=== PATIENT | female | born 1950 | race Caucasian/White ===

== ENCOUNTER 2022-06-19 08:14 | Inpatient (IN) | payer MEDICARE, MEDICAID ==
[2022-06-19] VITALS (35 sets, daily range): BP systolic 86–154; BP diastolic 39–93
[~2022-06-19] VITALS: Ht 167.6 cm; Wt 74.4 kg
[~2022-06-19 08:14] MED LIST: GABA-532 PO; LEVO75TA7 MT; MELO-106 PO; SUMA100T PO
[2022-06-19] MEDS ORDERED: METHYLPREDNISOLONE SOD SUCC 125 MG/2 ML VIAL IV STA (08:33)
[2022-06-19] MEDS ORDERED: ALBUTEROL (0.083%) 2.5MG/3ML NEB HHN STA (08:33)
[2022-06-19] MEDS ORDERED: PROPOFOL 10MG/ML 100ML 100 ML IV STA (08:46)
[2022-06-19] MEDS: IPRATROPIUM BROMIDE (0.02%) 0.5MG/2.5ML NEB HHN STA ×2 (08:52→08:53)
[2022-06-19 08:54] LABS: HEMATOCRIT. 41.5 % (36.0-48.0); MEAN CORPUSCULAR VOLUME 92.3 fL (81.0-99.0); MEAN PLATELET VOLUME 6.6 fl (7.4-10.4); PLATELET 434 x1000/uL (130-400); RED BLOOD CELL COUNT 4.49 mill/uL (4.2-5.4); RED CELL DISTRIBUTION WIDTH 16.2 % (11.6-14.6)
[2022-06-19 08:56] LABS: CHLORIDE 102 mEq/L (98-107)
[2022-06-19 08:57] LABS: PROTHROMBIN TIME 10.5 sec (9.6-11.0)
[2022-06-19 09:12] LABS: ETHANOL BLOOD < 10 mg/dL
[2022-06-19] MEDS ORDERED: VANCOMYCIN 1G PREMIX 200 ML IV STA (09:24)
[2022-06-19] MEDS ORDERED: CEFEPIME 1,000 MG in DEXTROSE 5% WATER 50 ML IV STA (09:24)
[2022-06-19] MEDS ORDERED: SUCCINYLCHOLINE CHLORIDE 200MG/10ML IV ONE (09:39)
[2022-06-19] MEDS ORDERED: ETOMIDATE 2MG/ML 10ML VIAL IV ONE (09:39)
[2022-06-19 09:44] LABS: PLATELET ESTIMATE SLIGHTLY INCREASED
[2022-06-19] MEDS ORDERED: FENTANYL 2500MCG/250ML PMX 250 ML IV ONE (10:00)
[2022-06-19] MEDS ORDERED: SODIUM CHLORIDE 0.9% 1,000 ML IV ONE (10:00)
[2022-06-19] MEDS ORDERED: FENTANYL 2500MCG/250ML PMX 250 ML IV PRN (10:00)
[2022-06-19 10:53] LABS: CLARITY URINE CLOUDY (CLEAR); COLOR URINE YELLOW (YELLOW); KETONES URINE NEGATIVE (NEGATIVE); LEUKOCYTE ESTERASE URINE TRACE (NEGATIVE); NITRITE URINE POSITIVE (NEGATIVE); OCCULT BLOOD URINE TRACE (NEGATIVE); PROTEIN URINE 3+ (NEGATIVE); SPECIFIC GRAVITY URINE 1.016 (1.005-1.030)
[2022-06-19] MEDS ORDERED: NOREPINEPHRINE 8MG/250ML PMX 250 ML IV ONE (11:00)
[2022-06-19 11:11] LABS: *AMPHETAMINES SCREEN URINE NEGATIVE (NEGATIVE); *BARBITURATES SCREEN URINE NEGATIVE (NEGATIVE); *BENZODIAZEPINES SCREEN URINE NEGATIVE (NEGATIVE); *COCAINE SCREEN URINE NEGATIVE (NEGATIVE); CANNABINOID URINE SCREEN NEGATIVE (NEGATIVE); METHADONE URINE SCREEN NEGATIVE (NEGATIVE); OPIATES URINE SCREEN NEGATIVE (NEGATIVE); PHENCYCLIDINE URINE SCREEN NEGATIVE (NEGATIVE)
[2022-06-19] MEDS ORDERED: NOREPINEPHRINE 8 MG in DEXTROSE 5% WATER 250 ML IV NR (11:15)
[2022-06-19] MEDS ORDERED: METHYLPREDNISOLONE SOD SUCC 125 MG/2 ML VIAL IV NR (12:00)
[2022-06-19 12:13] LABS: BG BASE EXCESS -3.4 mmol/L (-2.0-2.0); BG CARBOXYHEMOGLOBIN 0.4 % (0.5-1.5); BG DEOXYHEMOGLOBIN 0.6 % (0.0-5.0); BG FRACTION INSPIRED OXYGEN 100; BG HCO3 ACT 20.4 mmol/L (22.0-26.0); BG METHEMOGLOBIN 0.2 % (0.0-1.5); BG OXYGEN SATURATION 99.4 % (92.0-98.5); BG OXYHEMOGLOBIN 98.8 % (94.0-97.0); BG PCO2 32.8 mmHg (35.0-45.0); BG PH 7.412 (7.350-7.450); BG PO2 442.5 mmHg (75.0-100.0); BG SAMPLE SITE RIGHT RADIAL; BG TOTAL HEMOGLOBIN 12.2 g/dL (12.0-18.0); BG VENT MODE VENT - AC
[2022-06-19] MEDS ORDERED: PROPOFOL 10MG/ML 100ML 100 ML IV SCH (12:45)
[2022-06-19] MEDS ORDERED: IPRATROPIUM/ALBUTEROL 0.5-3(2.5)MG/3ML NEB HHN PRN (15:00)
[2022-06-19] MEDS ORDERED: MIDAZOLAM 100MG/100ML PMX 100 ML IV PRN (15:00)
[2022-06-19] MEDS ORDERED: DEXTROSE 50% WATER 50ML SYRINGE IV PRN (16:15)
[2022-06-19] MEDS: NOREPINEPHRINE 8 MG in DEXT 5% WATER 242 ML IV PRN (17:42)
[2022-06-19] MEDS: ENOXAPARIN 40MG/0.4ML SYR SUBCUT SCH (17:42)
[2022-06-19] MEDS: MIDAZOLAM HCL 100 MG in SODIUM CHLORIDE 0.9% 100 ML IV PRN (17:43)
[2022-06-19] MEDS: FENTANYL 2500MCG/250ML PMX 250 ML IV PRN (17:44)
[2022-06-19] MEDS: BLOOD SUGAR DIAGNOSTIC STRIP TEST SCH ×2 (17:45→21:00)
[2022-06-19] MEDS ORDERED: LITH150C MT (18:02)
[2022-06-19] MEDS ORDERED: LITH300C3 PO (18:05)
[2022-06-19] MEDS: INSULIN LISPRO 100 UNITS/ML SUBCUT SCH ×2 (18:06→21:00)
[2022-06-19] MEDS ORDERED: LEVE750T4 PO (18:07)
[2022-06-19] MEDS ORDERED: HYDR-4135 MT (18:08)
[2022-06-19] MEDS ORDERED: ASCO100T12 MT (18:09)
[2022-06-19] MEDS ORDERED: IRON45TA10 MT (18:09)
[2022-06-19] MEDS ORDERED: PROT20 MT (18:10)
[2022-06-19] MEDS ORDERED: QUET100T PO (18:10)
[2022-06-19] MEDS ORDERED: CEFEPIME 1,000 MG in DEXTROSE 5% WATER 50 ML IV SCH (21:00)
[2022-06-19] MEDS: IPRATROPIUM/ALBUTEROL 0.5-3(2.5)MG/3ML NEB HHN SCH (21:02)
[2022-06-19] MEDS: PIPERACILLIN/TAZOBACTAM 3.375 G in DEXTROSE 5% WATER 50 ML IV SCH (22:10)
[2022-06-19] MEDS: FAMOTIDINE 20MG TABLET PO SCH (22:11)
[2022-06-20] VITALS (93 sets, daily range): BP systolic 68–144; BP diastolic 36–92
[2022-06-20] MEDS: FENTANYL 2500MCG/250ML PMX 250 ML IV PRN ×2 (00:02→11:23)
[2022-06-20] MEDS: IPRATROPIUM/ALBUTEROL 0.5-3(2.5)MG/3ML NEB HHN SCH ×4 (01:28→20:09)
[2022-06-20] MEDS: VANCOMYCIN 1G PREMIX 200 ML IV SCH ×2 (03:38→20:38)
[2022-06-20 05:38] LABS: T4 FREE 0.98 ng/dL (0.76-1.46)
[2022-06-20] MEDS: INSULIN LISPRO 100 UNITS/ML SUBCUT SCH ×3 (06:00→17:39)
[2022-06-20] MEDS: PIPERACILLIN/TAZOBACTAM 3.375 G in DEXTROSE 5% WATER 50 ML IV SCH ×3 (06:13→22:59)
[2022-06-20] MEDS: BLOOD SUGAR DIAGNOSTIC STRIP TEST SCH ×3 (06:14→17:39)
[2022-06-20] MEDS: LEVOTHYROXINE SODIUM 75MCG TABLET PO SCH (07:50)
[2022-06-20 09:39] LABS: CHLORIDE 106 mEq/L (98-107)
[2022-06-20 09:44] LABS: BG BASE EXCESS 1.2 mmol/L (-2.0-2.0); BG CARBOXYHEMOGLOBIN 0.3 % (0.5-1.5); BG DEOXYHEMOGLOBIN 6.1 % (0.0-5.0); BG FRACTION INSPIRED OXYGEN 35; BG HCO3 ACT 25.5 mmol/L (22.0-26.0); BG METHEMOGLOBIN 0.6 % (0.0-1.5); BG OXYGEN SATURATION 93.8 % (92.0-98.5); BG PH 7.433 (7.350-7.450); BG PO2 71.6 mmHg (75.0-100.0); BG SAMPLE SITE RIGHT RADIAL; BG TOTAL HEMOGLOBIN 11.8 g/dL (12.0-18.0); BG VENT MODE VENT - AC
[2022-06-20] MEDS: MIDAZOLAM HCL 100 MG in SODIUM CHLORIDE 0.9% 100 ML IV PRN (11:23)
[2022-06-20] MEDS: NOREPINEPHRINE 8 MG in DEXT 5% WATER 242 ML IV PRN (13:05)
[2022-06-20] MEDS: RISPERIDONE 0.5MG TABLET PO SCH (16:09)
[2022-06-20] MEDS: ENOXAPARIN 40MG/0.4ML SYR SUBCUT SCH (16:09)
[2022-06-20 17:02] LABS: HEPATITIS B SURFACE ANTIGEN NEGATIVE
[2022-06-20 18:21] LABS: BASOPHILS % 0.3 % (0.0-2.0); EOSINOPHILS % 2.5 % (0.0-5.0); HEMATOCRIT. 32.1 % (36.0-48.0); HEMOGLOBIN. 10.7 g/dL (12.0-16.0); LYMPHOCYTES % 12.7 % (20.0-50.0); MEAN CORPUSCULAR HEMOGLOBIN 28.8 pg (28.0-32.0); MEAN CORPUSCULAR VOLUME 86.7 fL (81.0-99.0); MEAN PLATELET VOLUME 6.5 fl (7.4-10.4); MONOCYTES % 7.9 % (2.0-8.0); NEUTROPHILS % 76.6 % (40.0-76.0); PLATELET 236 x1000/uL (130-400); RED CELL DISTRIBUTION WIDTH 15.1 % (11.6-14.6)
[2022-06-20] MEDS: QUETIAPINE FUMARATE 25MG TABLET PO SCH (20:38)
[2022-06-20] MEDS: FAMOTIDINE 20MG TABLET PO SCH (20:38)
[2022-06-21] VITALS (95 sets, daily range): BP systolic 75–121; BP diastolic 47–74
[2022-06-21] MEDS: IPRATROPIUM/ALBUTEROL 0.5-3(2.5)MG/3ML NEB HHN SCH ×4 (01:32→19:56)
[2022-06-21 05:37] LABS: BASOPHILS % 0.8 % (0.0-2.0); EOSINOPHILS % 2.7 % (0.0-5.0); HEMATOCRIT. 35.4 % (36.0-48.0); HEMOGLOBIN. 11.4 g/dL (12.0-16.0); LYMPHOCYTES % 12.8 % (20.0-50.0); MEAN CORPUSCULAR HEMOGLOBIN 28.1 pg (28.0-32.0); MEAN CORPUSCULAR VOLUME 87.2 fL (81.0-99.0); MEAN PLATELET VOLUME 6.7 fl (7.4-10.4); MONOCYTES % 8.6 % (2.0-8.0); NEUTROPHILS % 75.1 % (40.0-76.0); PLATELET 244 x1000/uL (130-400); RED BLOOD CELL COUNT 4.05 mill/uL (4.2-5.4)
[2022-06-21 05:48] LABS: CHLORIDE 103 mEq/L (98-107)
[2022-06-21] MEDS: INSULIN LISPRO 100 UNITS/ML SUBCUT SCH ×5 (06:00→23:58)
[2022-06-21] MEDS: PIPERACILLIN/TAZOBACTAM 3.375 G in DEXTROSE 5% WATER 50 ML IV SCH ×3 (06:51→21:47)
[2022-06-21] MEDS: BLOOD SUGAR DIAGNOSTIC STRIP TEST SCH ×5 (06:51→23:58)
[2022-06-21] MEDS: QUETIAPINE FUMARATE 25MG TABLET PO SCH (09:04)
[2022-06-21] MEDS: LEVOTHYROXINE SODIUM 75MCG TABLET PO SCH (09:04)
[2022-06-21] MEDS: RISPERIDONE 0.5MG TABLET PO SCH ×2 (09:04→17:12)
[2022-06-21 09:25] LABS: BG BASE EXCESS 0.2 mmol/L (-2.0-2.0); BG CARBOXYHEMOGLOBIN 0.6 % (0.5-1.5); BG DEOXYHEMOGLOBIN 2.3 % (0.0-5.0); BG FRACTION INSPIRED OXYGEN 35; BG HCO3 ACT 24.7 mmol/L (22.0-26.0); BG METHEMOGLOBIN 0.3 % (0.0-1.5); BG OXYGEN SATURATION 97.7 % (92.0-98.5); BG OXYHEMOGLOBIN 96.8 % (94.0-97.0); BG PCO2 39.1 mmHg (35.0-45.0); BG PH 7.418 (7.350-7.450); BG SAMPLE SITE RIGHT BRACHIAL; BG TOTAL HEMOGLOBIN 10.7 g/dL (12.0-18.0); BG VENT MODE VENT - AC
[2022-06-21] MEDS: FUROSEMIDE 40MG/4ML VIAL IVP SCH (10:18)
[2022-06-21] MEDS: FENTANYL 2500MCG/250ML PMX 250 ML IV PRN (11:59)
[2022-06-21] MEDS: MIDAZOLAM HCL 100 MG in SODIUM CHLORIDE 0.9% 100 ML IV PRN (13:55)
[2022-06-21] MEDS: VANCOMYCIN 1G PREMIX 200 ML IV SCH (16:02)
[2022-06-21] MEDS: ENOXAPARIN 40MG/0.4ML SYR SUBCUT SCH (16:02)
[2022-06-21] MEDS: FAMOTIDINE 20MG TABLET PO SCH (21:46)
[2022-06-22] VITALS (99 sets, daily range): BP systolic 75–212; BP diastolic 43–124
[2022-06-22] MEDS: IPRATROPIUM/ALBUTEROL 0.5-3(2.5)MG/3ML NEB HHN SCH ×4 (02:05→20:54)
[2022-06-22] MEDS: NOREPINEPHRINE 8 MG in DEXT 5% WATER 242 ML IV PRN (03:36)
[2022-06-22 05:34] LABS: HEMOGLOBIN. 10.2 g/dL (12.0-16.0); MEAN CORPUSCULAR HEMOGLOBIN 29.2 pg (28.0-32.0); MEAN CORPUSCULAR VOLUME 88.2 fL (81.0-99.0); PLATELET 228 x1000/uL (130-400); RED BLOOD CELL COUNT 3.51 mill/uL (4.2-5.4); RED CELL DISTRIBUTION WIDTH 14.8 % (11.6-14.6)
[2022-06-22] MEDS: PIPERACILLIN/TAZOBACTAM 3.375 G in DEXTROSE 5% WATER 50 ML IV SCH ×2 (05:53→15:35)
[2022-06-22] MEDS: BLOOD SUGAR DIAGNOSTIC STRIP TEST SCH (05:53)
[2022-06-22] MEDS: INSULIN LISPRO 100 UNITS/ML SUBCUT SCH (05:54)
[2022-06-22] MEDS: RISPERIDONE 0.5MG TABLET PO SCH ×2 (08:25→17:08)
[2022-06-22] MEDS: LEVOTHYROXINE SODIUM 75MCG TABLET PO SCH (08:25)
[2022-06-22] MEDS: FUROSEMIDE 40MG/4ML VIAL IVP SCH (08:25)
[2022-06-22] MEDS: VANCOMYCIN 1G PREMIX 200 ML IV SCH (08:26)
[2022-06-22] MEDS: FENTANYL 2500MCG/250ML PMX 250 ML IV PRN (08:41)
[2022-06-22 08:44] LABS: BG BASE EXCESS -1.6 mmol/L (-2.0-2.0); BG CARBOXYHEMOGLOBIN 0.3 % (0.5-1.5); BG DEOXYHEMOGLOBIN 2.1 % (0.0-5.0); BG FRACTION INSPIRED OXYGEN 35; BG HCO3 ACT 22.7 mmol/L (22.0-26.0); BG METHEMOGLOBIN 0.1 % (0.0-1.5); BG OXYGEN SATURATION 97.9 % (92.0-98.5); BG OXYHEMOGLOBIN 97.5 % (94.0-97.0); BG PCO2 36.6 mmHg (35.0-45.0); BG PO2 125.1 mmHg (75.0-100.0); BG SAMPLE SITE RIGHT RADIAL; BG TOTAL HEMOGLOBIN 10.3 g/dL (12.0-18.0); BG VENT MODE VENT - AC
[2022-06-22 10:32] LABS: PLATELET ESTIMATE NORMAL
[2022-06-22] MEDS: SODIUM CHLORIDE 0.45% 1,000 ML IV SCH ×2 (10:44→21:15)
[2022-06-22] MEDS: DOCUSATE SODIUM SUGAR FREE 100MG/10ML UDC NG SCH ×2 (11:48→17:08)
[2022-06-22] MEDS: ENOXAPARIN 30MG/0.3ML SYR SUBCUT SCH (17:08)
[2022-06-22] MEDS ORDERED: CEFTRIAXONE 2 G PREMIX 50 ML IV SCH (18:45)
[2022-06-22] MEDS: FAMOTIDINE 20MG TABLET PO SCH ×2 (21:00→21:15)
[2022-06-22] MEDS: CLONIDINE 0.1MG TABLET PO PRN ×2 (21:15→22:08)
[2022-06-22] MEDS: CEFTRIAXONE 2 G in DEXTROSE 5% WATER 50 ML IV SCH (21:18)
[2022-06-23] VITALS (52 sets, daily range): BP systolic 96–204; BP diastolic 61–119
[2022-06-23] MEDS: IPRATROPIUM/ALBUTEROL 0.5-3(2.5)MG/3ML NEB HHN SCH ×4 (02:11→20:01)
[2022-06-23] MEDS: MIDAZOLAM HCL 100 MG in SODIUM CHLORIDE 0.9% 100 ML IV PRN (05:50)
[2022-06-23] MEDS: SODIUM CHLORIDE 0.45% 1,000 ML IV SCH ×2 (08:37→20:27)
[2022-06-23] MEDS: LEVOTHYROXINE SODIUM 75MCG TABLET PO SCH (09:28)
[2022-06-23] MEDS: FUROSEMIDE 40MG/4ML VIAL IVP SCH (09:28)
[2022-06-23] MEDS: RISPERIDONE 0.5MG TABLET PO SCH (09:28)
[2022-06-23] MEDS: DOCUSATE SODIUM SUGAR FREE 100MG/10ML UDC NG SCH ×2 (09:28→16:51)
[2022-06-23 12:51] LABS: BG BASE EXCESS 0.5 mmol/L (-2.0-2.0); BG CARBOXYHEMOGLOBIN 0.5 % (0.5-1.5); BG DEOXYHEMOGLOBIN 3.2 % (0.0-5.0); BG FRACTION INSPIRED OXYGEN 30; BG HCO3 ACT 24.9 mmol/L (22.0-26.0); BG METHEMOGLOBIN 0.3 % (0.0-1.5); BG OXYGEN SATURATION 96.8 % (92.0-98.5); BG PCO2 39.2 mmHg (35.0-45.0); BG PH 7.421 (7.350-7.450); BG PO2 90.1 mmHg (75.0-100.0); BG SAMPLE SITE RIGHT RADIAL; BG TOTAL HEMOGLOBIN 12.3 g/dL (12.0-18.0); BG VENT MODE VENT - CPAP
[2022-06-23] MEDS: HYDRALAZINE HCL 50MG TABLET NG SCH ×2 (14:33→21:41)
[2022-06-23] MEDS: ENOXAPARIN 30MG/0.3ML SYR SUBCUT SCH (16:51)
[2022-06-23] MEDS: CLONIDINE 0.1MG TABLET PO PRN (16:51)
[2022-06-23 17:44] LABS: BG CARBOXYHEMOGLOBIN 0.9 % (0.5-1.5); BG DEOXYHEMOGLOBIN 3.7 % (0.0-5.0); BG FRACTION INSPIRED OXYGEN 35; BG HCO3 ACT 25.2 mmol/L (22.0-26.0); BG METHEMOGLOBIN 0.3 % (0.0-1.5); BG OXYGEN SATURATION 96.3 % (92.0-98.5); BG OXYHEMOGLOBIN 95.1 % (94.0-97.0); BG PCO2 53.7 mmHg (35.0-45.0); BG PO2 94.9 mmHg (75.0-100.0); BG SAMPLE SITE RIGHT RADIAL; BG TOTAL HEMOGLOBIN 13.1 g/dL (12.0-18.0); BG VENT MODE MASK - BIPAP
[2022-06-23] MEDS: CEFTRIAXONE 2 G in DEXTROSE 5% WATER 50 ML IV SCH (20:21)
[2022-06-23] MEDS: FAMOTIDINE 20MG TABLET PO SCH (21:40)
[2022-06-24] VITALS (23 sets, daily range): BP systolic 119–185; BP diastolic 66–94
[2022-06-24] MEDS: IPRATROPIUM/ALBUTEROL 0.5-3(2.5)MG/3ML NEB HHN SCH ×4 (02:42→20:01)
[2022-06-24 06:17] LABS: BASOPHILS % 0.2 % (0.0-2.0); EOSINOPHILS % 0.8 % (0.0-5.0); HEMATOCRIT. 33.4 % (36.0-48.0); LYMPHOCYTES % 8.9 % (20.0-50.0); MEAN CORPUSCULAR HEMOGLOBIN 28.8 pg (28.0-32.0); MEAN CORPUSCULAR VOLUME 87.5 fL (81.0-99.0); MEAN PLATELET VOLUME 6.8 fl (7.4-10.4); MONOCYTES % 8.1 % (2.0-8.0); PLATELET 300 x1000/uL (130-400); RED BLOOD CELL COUNT 3.81 mill/uL (4.2-5.4); RED CELL DISTRIBUTION WIDTH 14.8 % (11.6-14.6)
[2022-06-24 09:02] LABS: BG BASE EXCESS -2.4 mmol/L (-2.0-2.0); BG CARBOXYHEMOGLOBIN 0.3 % (0.5-1.5); BG DEOXYHEMOGLOBIN 9.8 % (0.0-5.0); BG FRACTION INSPIRED OXYGEN 28; BG HCO3 ACT 23.3 mmol/L (22.0-26.0); BG METHEMOGLOBIN 0.3 % (0.0-1.5); BG OXYGEN SATURATION 90.1 % (92.0-98.5); BG OXYHEMOGLOBIN 89.6 % (94.0-97.0); BG PH 7.342 (7.350-7.450); BG PO2 62.2 mmHg (75.0-100.0); BG SAMPLE SITE RIGHT RADIAL; BG TOTAL HEMOGLOBIN 11.7 g/dL (12.0-18.0); BG TOTAL RESPIRATORY RATE 22 b/min; BG VENT MODE MASK - BIPAP
[2022-06-24] MEDS: SODIUM CHLORIDE 0.45% 1,000 ML IV SCH ×2 (09:31→18:58)
[2022-06-24] MEDS: DOCUSATE SODIUM SUGAR FREE 100MG/10ML UDC NG SCH ×2 (10:09→18:58)
[2022-06-24] MEDS: LEVOTHYROXINE SODIUM 75MCG TABLET PO SCH (10:10)
[2022-06-24] MEDS: HYDRALAZINE HCL 50MG TABLET NG SCH ×2 (10:10→20:51)
[2022-06-24] MEDS: ACETYLCYSTEINE 200MG/ML 20% VIAL 4ML INH SCH ×2 (14:07→20:01)
[2022-06-24] MEDS ORDERED: VANCOMYCIN 1G PREMIX 200 ML IV NR (18:00)
[2022-06-24] MEDS: ENOXAPARIN 30MG/0.3ML SYR SUBCUT SCH (18:58)
[2022-06-24] MEDS ORDERED: IPRATROPIUM/ALBUTEROL 0.5-3(2.5)MG/3ML NEB HHN NR (20:00)
[2022-06-24] MEDS: FAMOTIDINE 20MG TABLET PO SCH (20:51)
[2022-06-24] MEDS: CEFTRIAXONE 2 G in DEXTROSE 5% WATER 50 ML IV SCH (20:51)
[2022-06-25] VITALS (18 sets, daily range): BP systolic 102–167; BP diastolic 55–115
[2022-06-25] MEDS: IPRATROPIUM/ALBUTEROL 0.5-3(2.5)MG/3ML NEB HHN SCH ×3 (01:45→14:05)
[2022-06-25 05:52] LABS: BASOPHILS % 0.3 % (0.0-2.0); EOSINOPHILS % 2.1 % (0.0-5.0); HEMOGLOBIN. 8.8 g/dL (12.0-16.0); LYMPHOCYTES % 9.7 % (20.0-50.0); MEAN CORPUSCULAR HEMOGLOBIN 28.8 pg (28.0-32.0); MEAN CORPUSCULAR VOLUME 88.5 fL (81.0-99.0); MEAN PLATELET VOLUME 6.9 fl (7.4-10.4); MONOCYTES % 11.5 % (2.0-8.0); NEUTROPHILS % 76.4 % (40.0-76.0); PLATELET 212 x1000/uL (130-400); RED BLOOD CELL COUNT 3.05 mill/uL (4.2-5.4); RED CELL DISTRIBUTION WIDTH 14.6 % (11.6-14.6)
[2022-06-25] MEDS: SODIUM CHLORIDE 0.45% 1,000 ML IV SCH ×2 (06:07→15:17)
[2022-06-25] MEDS ORDERED: POTASSIUM CHLORIDE 20MEQ TABLET SR PO NR (06:45)
[2022-06-25] MEDS ORDERED: KCL 20MEQ/100ML PREMIX 100 ML IV NR (07:30)
[2022-06-25] MEDS: ACETYLCYSTEINE 200MG/ML 20% VIAL 4ML INH SCH ×2 (08:09→20:42)
[2022-06-25] MEDS: LEVOTHYROXINE SODIUM 75MCG TABLET PO SCH (08:16)
[2022-06-25] MEDS: DOCUSATE SODIUM SUGAR FREE 100MG/10ML UDC NG SCH ×2 (10:14→17:00)
[2022-06-25] MEDS ORDERED: IPRATROPIUM/ALBUTEROL 0.5-3(2.5)MG/3ML NEB HHN PRN (11:30)
[2022-06-25] MEDS: HYDRALAZINE HCL 25MG TABLET NG SCH ×2 (15:12→22:00)
[2022-06-25] MEDS ORDERED: HALOPERIDOL LACTATE 5MG/ML VIAL IM PRN (16:45)
[2022-06-25 16:54] LABS: BG BASE EXCESS 0.2 mmol/L (-2.0-2.0); BG CARBOXYHEMOGLOBIN 0.5 % (0.5-1.5); BG DEOXYHEMOGLOBIN 11.8 % (0.0-5.0); BG FRACTION INSPIRED OXYGEN 36; BG HCO3 ACT 24.5 mmol/L (22.0-26.0); BG OXYGEN SATURATION 88.1 % (92.0-98.5); BG OXYHEMOGLOBIN 87.7 % (94.0-97.0); BG PCO2 38.6 mmHg (35.0-45.0); BG PH 7.421 (7.350-7.450); BG PO2 56.7 mmHg (75.0-100.0); BG SAMPLE SITE RIGHT BRACHIAL; BG TOTAL HEMOGLOBIN 11.3 g/dL (12.0-18.0); BG VENT MODE NASAL CANNULA
[2022-06-25] MEDS ORDERED: HALOPERIDOL LACTATE 5MG/ML VIAL IM ONE (17:00)
[2022-06-25] MEDS ORDERED: IPRATROPIUM BROMIDE (0.02%) 0.5MG/2.5ML NEB HHN PRN (17:15)
[2022-06-25] MEDS ORDERED: ALBUTEROL (0.083%) 2.5MG/3ML NEB HHN PRN (17:15)
[2022-06-25] MEDS: ENOXAPARIN 40MG/0.4ML SYR SUBCUT SCH (17:46)
[2022-06-25] MEDS ORDERED: QUETIAPINE FUMARATE 50MG TABLET PO SCH (18:00)
[2022-06-25] MEDS: ALBUTEROL (0.083%) 2.5MG/3ML NEB HHN SCH ×2 (20:41→21:29)
[2022-06-25] MEDS: IPRATROPIUM BROMIDE (0.02%) 0.5MG/2.5ML NEB HHN SCH ×2 (20:41→21:29)
[2022-06-25] MEDS: FAMOTIDINE 20MG TABLET PO SCH (21:00)
[2022-06-25] MEDS: OLANZAPINE 10 MG/VIAL IM NR (22:33)
[2022-06-25] MEDS: CEFTRIAXONE 2 G in DEXTROSE 5% WATER 50 ML IV SCH (22:34)
[2022-06-25] MEDS ORDERED: OLANZAPINE 10 MG/VIAL IM PRN (23:00)
[2022-06-26] VITALS (11 sets, daily range): BP systolic 102–170; BP diastolic 42–106
[2022-06-26] MEDS: OLANZAPINE 10 MG/VIAL IM NR (01:11)
[2022-06-26] MEDS: ALBUTEROL (0.083%) 2.5MG/3ML NEB HHN SCH ×3 (01:16→20:00)
[2022-06-26] MEDS: IPRATROPIUM BROMIDE (0.02%) 0.5MG/2.5ML NEB HHN SCH ×3 (01:16→20:00)
[2022-06-26] MEDS: SODIUM CHLORIDE 0.45% 1,000 ML IV SCH ×2 (02:56→13:31)
[2022-06-26 05:59] LABS: BASOPHILS % 0.4 % (0.0-2.0); EOSINOPHILS % 1.8 % (0.0-5.0); HEMATOCRIT. 26.9 % (36.0-48.0); HEMOGLOBIN. 8.8 g/dL (12.0-16.0); LYMPHOCYTES % 15.2 % (20.0-50.0); MEAN CORPUSCULAR HEMOGLOBIN 28.9 pg (28.0-32.0); MEAN CORPUSCULAR VOLUME 88.6 fL (81.0-99.0); MEAN PLATELET VOLUME 6.9 fl (7.4-10.4); MONOCYTES % 8.9 % (2.0-8.0); NEUTROPHILS % 73.7 % (40.0-76.0); PLATELET 248 x1000/uL (130-400); RED BLOOD CELL COUNT 3.04 mill/uL (4.2-5.4); RED CELL DISTRIBUTION WIDTH 14.6 % (11.6-14.6)
[2022-06-26] MEDS: HYDRALAZINE HCL 25MG TABLET NG SCH ×3 (06:00→23:22)
[2022-06-26] MEDS: ACETYLCYSTEINE 200MG/ML 20% VIAL 4ML INH SCH ×2 (07:58→20:00)
[2022-06-26] MEDS: LEVOTHYROXINE SODIUM 75MCG TABLET PO SCH (08:46)
[2022-06-26] MEDS: DOCUSATE SODIUM SUGAR FREE 100MG/10ML UDC NG SCH ×2 (08:46→16:08)
[2022-06-26] MEDS: QUETIAPINE FUMARATE 50MG TABLET PO SCH ×2 (09:15→23:22)
[2022-06-26] MEDS ORDERED: POTASSIUM CHLORIDE 20MEQ TABLET SR PO SCH (13:00)
[2022-06-26] MEDS: FUROSEMIDE 40MG TABLET PO SCH (13:31)
[2022-06-26] MEDS: LORAZEPAM 2MG/ML CPJ IV PRN (15:31)
[2022-06-26] MEDS: ENOXAPARIN 40MG/0.4ML SYR SUBCUT SCH (16:08)
[2022-06-26 19:13] LABS: BG BASE EXCESS 1.3 mmol/L (-2.0-2.0); BG CARBOXYHEMOGLOBIN 0.6 % (0.5-1.5); BG DEOXYHEMOGLOBIN 6.4 % (0.0-5.0); BG FRACTION INSPIRED OXYGEN 40; BG HCO3 ACT 28.3 mmol/L (22.0-26.0); BG METHEMOGLOBIN 0.3 % (0.0-1.5); BG OXYGEN SATURATION 93.5 % (92.0-98.5); BG OXYHEMOGLOBIN 92.7 % (94.0-97.0); BG PCO2 54.9 mmHg (35.0-45.0); BG SAMPLE SITE RIGHT RADIAL; BG TOTAL HEMOGLOBIN 13.2 g/dL (12.0-18.0); BG VENT MODE NASAL CANNULA
[2022-06-26] MEDS: FAMOTIDINE 20MG TABLET PO SCH (23:22)
[2022-06-26] MEDS: HALOPERIDOL LACTATE 5MG/ML VIAL IM PRN (23:23)
[2022-06-27] VITALS: BP 148/78
[2022-06-27] MEDS: ALBUTEROL (0.083%) 2.5MG/3ML NEB HHN SCH ×4 (02:55→21:18)
[2022-06-27] MEDS: IPRATROPIUM BROMIDE (0.02%) 0.5MG/2.5ML NEB HHN SCH ×4 (02:55→21:18)
[2022-06-27 04:00] VITALS: BP 113/69
[2022-06-27] MEDS: HYDRALAZINE HCL 25MG TABLET NG SCH ×3 (06:26→20:32)
[2022-06-27 07:07] LABS: BASOPHILS % 0.6 % (0.0-2.0); EOSINOPHILS % 1.3 % (0.0-5.0); HEMATOCRIT. 31.1 % (36.0-48.0); HEMOGLOBIN. 10.1 g/dL (12.0-16.0); LYMPHOCYTES % 14.3 % (20.0-50.0); MEAN CORPUSCULAR HEMOGLOBIN 28.5 pg (28.0-32.0); MEAN CORPUSCULAR VOLUME 88.1 fL (81.0-99.0); MEAN PLATELET VOLUME 6.9 fl (7.4-10.4); MONOCYTES % 10.3 % (2.0-8.0); NEUTROPHILS % 73.5 % (40.0-76.0); PLATELET 314 x1000/uL (130-400); RED BLOOD CELL COUNT 3.53 mill/uL (4.2-5.4); RED CELL DISTRIBUTION WIDTH 14.8 % (11.6-14.6)
[2022-06-27 08:00] VITALS: BP 131/74
[2022-06-27] MEDS: HALOPERIDOL LACTATE 5MG/ML VIAL IM PRN (09:31)
[2022-06-27] MEDS: FUROSEMIDE 40MG TABLET PO SCH (11:07)
[2022-06-27] MEDS: LEVOTHYROXINE SODIUM 75MCG TABLET PO SCH (11:07)
[2022-06-27] MEDS: QUETIAPINE FUMARATE 50MG TABLET PO SCH ×2 (11:07→20:32)
[2022-06-27] MEDS: DOCUSATE SODIUM SUGAR FREE 100MG/10ML UDC NG SCH ×2 (11:08→18:10)
[2022-06-27 12:00] VITALS: BP 158/95
[2022-06-27] MEDS: LITHIUM CARBONATE 150 MG CAPSULE PO SCH (14:37)
[2022-06-27 16:00] VITALS: BP 146/90
[2022-06-27] MEDS: GABAPENTIN 300MG CAPSULE PO SCH (17:00)
[2022-06-27] MEDS ORDERED: LITHIUM CARBONATE 150 MG CAPSULE PO SCH (17:00)
[2022-06-27] MEDS: ENOXAPARIN 40MG/0.4ML SYR SUBCUT SCH (18:10)
[2022-06-27 20:00] VITALS: BP 164/86
[2022-06-27] MEDS: LEVETIRACETAM 500MG/5ML CUP PO SCH (20:32)
[2022-06-27] MEDS: FAMOTIDINE 20MG TABLET PO SCH (20:32)
[2022-06-27] MEDS: ACETYLCYSTEINE 200MG/ML 20% VIAL 4ML INH SCH (21:18)
[2022-06-28] VITALS (7 sets, daily range): BP systolic 126–157; BP diastolic 65–90
[2022-06-28] MEDS: ALBUTEROL (0.083%) 2.5MG/3ML NEB HHN SCH ×4 (01:39→21:35)
[2022-06-28] MEDS: IPRATROPIUM BROMIDE (0.02%) 0.5MG/2.5ML NEB HHN SCH ×4 (01:39→21:35)
[2022-06-28] MEDS: LEVOTHYROXINE SODIUM 75MCG TABLET PO SCH (06:08)
[2022-06-28] MEDS: HYDRALAZINE HCL 25MG TABLET NG SCH ×3 (06:09→22:00)
[2022-06-28] MEDS: ACETYLCYSTEINE 200MG/ML 20% VIAL 4ML INH SCH ×2 (07:52→21:35)
[2022-06-28] MEDS: LITHIUM CARBONATE 150 MG CAPSULE PO SCH ×2 (09:04→17:12)
[2022-06-28] MEDS: FUROSEMIDE 40MG TABLET PO SCH (09:04)
[2022-06-28] MEDS: LEVETIRACETAM 500MG/5ML CUP PO SCH ×2 (09:04→21:09)
[2022-06-28] MEDS: QUETIAPINE FUMARATE 50MG TABLET PO SCH (09:04)
[2022-06-28] MEDS: ASCORBIC ACID 250 MG TABLET PO SCH (09:04)
[2022-06-28] MEDS: GABAPENTIN 300MG CAPSULE PO SCH ×3 (09:05→17:15)
[2022-06-28] MEDS: DOCUSATE SODIUM SUGAR FREE 100MG/10ML UDC NG SCH ×2 (09:07→17:13)
[2022-06-28] MEDS: ENOXAPARIN 40MG/0.4ML SYR SUBCUT SCH (17:13)
[2022-06-28] MEDS: FAMOTIDINE 20MG TABLET PO SCH (21:09)
[2022-06-28] MEDS: QUETIAPINE FUMARATE 25MG TABLET PO SCH (21:12)
[2022-06-29] VITALS (8 sets, daily range): BP systolic 102–148; BP diastolic 43–74
[2022-06-29] MEDS: IPRATROPIUM BROMIDE (0.02%) 0.5MG/2.5ML NEB HHN SCH ×4 (02:36→20:12)
[2022-06-29] MEDS: ALBUTEROL (0.083%) 2.5MG/3ML NEB HHN SCH ×4 (02:36→20:12)
[2022-06-29] MEDS: HYDRALAZINE HCL 25MG TABLET NG SCH (05:30)
[2022-06-29] MEDS: LEVOTHYROXINE SODIUM 75MCG TABLET PO SCH (05:33)
[2022-06-29] MEDS: LITHIUM CARBONATE 150 MG CAPSULE PO SCH ×2 (08:43→17:10)
[2022-06-29] MEDS: QUETIAPINE FUMARATE 25MG TABLET PO SCH ×2 (08:43→20:06)
[2022-06-29] MEDS: ASCORBIC ACID 250 MG TABLET PO SCH (08:43)
[2022-06-29] MEDS: LEVETIRACETAM 500MG/5ML CUP PO SCH ×2 (08:43→20:05)
[2022-06-29] MEDS: DOCUSATE SODIUM SUGAR FREE 100MG/10ML UDC NG SCH ×2 (08:43→17:10)
[2022-06-29] MEDS: FUROSEMIDE 40MG TABLET PO SCH (08:43)
[2022-06-29] MEDS: GABAPENTIN 300MG CAPSULE PO SCH ×3 (08:46→17:12)
[2022-06-29] MEDS: ENOXAPARIN 40MG/0.4ML SYR SUBCUT SCH (17:11)
[2022-06-29] MEDS: FAMOTIDINE 20MG TABLET PO SCH (20:06)
[2022-06-29] MEDS: ACETYLCYSTEINE 200MG/ML 20% VIAL 4ML INH SCH (20:15)
[2022-06-30] VITALS (11 sets, daily range): BP systolic 87–139; BP diastolic 45–85
[2022-06-30] MEDS: ALBUTEROL (0.083%) 2.5MG/3ML NEB HHN SCH ×3 (01:58→14:54)
[2022-06-30] MEDS: IPRATROPIUM BROMIDE (0.02%) 0.5MG/2.5ML NEB HHN SCH ×3 (01:58→14:53)
[2022-06-30 06:36] LABS: BASOPHILS % 0.5 % (0.0-2.0); EOSINOPHILS % 2.5 % (0.0-5.0); HEMATOCRIT. 39.6 % (36.0-48.0); HEMOGLOBIN. 12.1 g/dL (12.0-16.0); LYMPHOCYTES % 7.9 % (20.0-50.0); MEAN CORPUSCULAR VOLUME 91.3 fL (81.0-99.0); MEAN PLATELET VOLUME 6.9 fl (7.4-10.4); MONOCYTES % 3.7 % (2.0-8.0); NEUTROPHILS % 85.4 % (40.0-76.0); PLATELET 370 x1000/uL (130-400); RED BLOOD CELL COUNT 4.33 mill/uL (4.2-5.4); RED CELL DISTRIBUTION WIDTH 15.2 % (11.6-14.6)
[2022-06-30] MEDS: GABAPENTIN 300MG CAPSULE PO SCH ×3 (08:15→17:00)
[2022-06-30] MEDS: ASCORBIC ACID 250 MG TABLET PO SCH (08:15)
[2022-06-30] MEDS: DOCUSATE SODIUM SUGAR FREE 100MG/10ML UDC NG SCH ×2 (08:15→17:00)
[2022-06-30] MEDS: QUETIAPINE FUMARATE 25MG TABLET PO SCH ×2 (08:15→20:42)
[2022-06-30] MEDS: LEVETIRACETAM 500MG/5ML CUP PO SCH ×2 (08:15→20:41)
[2022-06-30] MEDS: LITHIUM CARBONATE 150 MG CAPSULE PO SCH ×2 (08:16→18:36)
[2022-06-30] MEDS: HALOPERIDOL LACTATE 5MG/ML VIAL IM PRN (08:16)
[2022-06-30] MEDS: FUROSEMIDE 40MG TABLET PO SCH (08:16)
[2022-06-30] MEDS: LEVOTHYROXINE SODIUM 75MCG TABLET PO SCH (08:20)
[2022-06-30] MEDS: LORAZEPAM 2MG/ML CPJ IV PRN (15:39)
[2022-06-30] MEDS ORDERED: CEFTRIAXONE 1 G PREMIX 50 ML IV SCH (16:45)
[2022-06-30] MEDS: ENOXAPARIN 40MG/0.4ML SYR SUBCUT SCH (18:36)
[2022-06-30] MEDS: CEFTRIAXONE 1,000 MG in DEXTROSE 5% WATER 50 ML IV SCH ×2 (18:47→18:51)
[2022-06-30] MEDS: FAMOTIDINE 20MG TABLET PO SCH (20:41)
[2022-07-01] VITALS (12 sets, daily range): BP systolic 104–159; BP diastolic 66–93
[2022-07-01] MEDS: GABAPENTIN 300MG CAPSULE PO SCH ×3 (09:08→18:17)
[2022-07-01] MEDS: DOCUSATE SODIUM SUGAR FREE 100MG/10ML UDC NG SCH ×2 (09:09→18:17)
[2022-07-01] MEDS: LITHIUM CARBONATE 150 MG CAPSULE PO SCH ×2 (09:09→18:17)
[2022-07-01] MEDS: LEVOTHYROXINE SODIUM 75MCG TABLET PO SCH (09:09)
[2022-07-01] MEDS: FUROSEMIDE 40MG TABLET PO SCH (09:09)
[2022-07-01] MEDS: LEVETIRACETAM 500MG/5ML CUP PO SCH ×2 (09:09→21:06)
[2022-07-01] MEDS: ASCORBIC ACID 250 MG TABLET PO SCH (09:09)
[2022-07-01] MEDS: QUETIAPINE FUMARATE 25MG TABLET PO SCH ×2 (09:09→21:06)
[2022-07-01 11:01] LABS: BASOPHILS % 0.4 % (0.0-2.0); EOSINOPHILS % 2.8 % (0.0-5.0); HEMOGLOBIN. 11.1 g/dL (12.0-16.0); LYMPHOCYTES % 8.5 % (20.0-50.0); MEAN CORPUSCULAR VOLUME 87.8 fL (81.0-99.0); MEAN PLATELET VOLUME 6.8 fl (7.4-10.4); MONOCYTES % 3.4 % (2.0-8.0); NEUTROPHILS % 84.9 % (40.0-76.0); PLATELET 403 x1000/uL (130-400); RED BLOOD CELL COUNT 3.99 mill/uL (4.2-5.4); RED CELL DISTRIBUTION WIDTH 14.4 % (11.6-14.6)
[2022-07-01] MEDS ORDERED: QUET25TA PO (14:11)
[2022-07-01] MEDS ORDERED: LITH150C PO (14:11)
[2022-07-01] MEDS ORDERED: AZIT500T8 MT (14:12)
[2022-07-01] MEDS: ENOXAPARIN 40MG/0.4ML SYR SUBCUT SCH (18:18)
[2022-07-01] MEDS: FAMOTIDINE 20MG TABLET PO SCH (21:11)
[2022-07-02] VITALS (7 sets, daily range): BP systolic 108–139; BP diastolic 62–83
[2022-07-02 07:13] LABS: BASOPHILS % 0.5 % (0.0-2.0); EOSINOPHILS % 4.7 % (0.0-5.0); HEMATOCRIT. 35.3 % (36.0-48.0); HEMOGLOBIN. 11.6 g/dL (12.0-16.0); MEAN CORPUSCULAR HEMOGLOBIN 28.6 pg (28.0-32.0); MEAN CORPUSCULAR VOLUME 87.2 fL (81.0-99.0); MEAN PLATELET VOLUME 6.7 fl (7.4-10.4); MONOCYTES % 4.3 % (2.0-8.0); NEUTROPHILS % 76.5 % (40.0-76.0); PLATELET 459 x1000/uL (130-400); RED BLOOD CELL COUNT 4.05 mill/uL (4.2-5.4); RED CELL DISTRIBUTION WIDTH 14.4 % (11.6-14.6)
[2022-07-02] MEDS: LITHIUM CARBONATE 150 MG CAPSULE PO SCH ×2 (10:04→17:14)
[2022-07-02] MEDS: LEVETIRACETAM 500MG/5ML CUP PO SCH ×2 (10:04→20:39)
[2022-07-02] MEDS: FUROSEMIDE 40MG TABLET PO SCH (10:05)
[2022-07-02] MEDS: QUETIAPINE FUMARATE 50MG TABLET PO SCH ×2 (10:05→20:39)
[2022-07-02] MEDS: DOCUSATE SODIUM SUGAR FREE 100MG/10ML UDC NG SCH ×2 (10:05→17:17)
[2022-07-02] MEDS: GABAPENTIN 300MG CAPSULE PO SCH ×3 (10:05→17:14)
[2022-07-02] MEDS: ASCORBIC ACID 250 MG TABLET PO SCH (10:05)
[2022-07-02] MEDS: LEVOTHYROXINE SODIUM 75MCG TABLET PO SCH (10:05)
[2022-07-02] MEDS: CEFTRIAXONE 1,000 MG in DEXTROSE 5% WATER 50 ML IV SCH (17:14)
[2022-07-02] MEDS: ENOXAPARIN 40MG/0.4ML SYR SUBCUT SCH (17:15)
[2022-07-02] MEDS: FAMOTIDINE 20MG TABLET PO SCH (20:39)
[2022-07-03] VITALS: BP 152/83
[2022-07-03 04:00] VITALS: BP 138/78
[2022-07-03] MEDS: LEVOTHYROXINE SODIUM 75MCG TABLET PO SCH (07:30)
[2022-07-03 08:05] VITALS: BP 133/70
[2022-07-03] MEDS: GABAPENTIN 300MG CAPSULE PO SCH (09:00)
[2022-07-03] MEDS: LEVETIRACETAM 500MG/5ML CUP PO SCH (09:40)
[2022-07-03] MEDS: QUETIAPINE FUMARATE 50MG TABLET PO SCH (09:40)
[2022-07-03] MEDS: ASCORBIC ACID 250 MG TABLET PO SCH (09:40)
[2022-07-03] MEDS: DOCUSATE SODIUM SUGAR FREE 100MG/10ML UDC NG SCH (09:40)
[2022-07-03] MEDS: LITHIUM CARBONATE 150 MG CAPSULE PO SCH (09:41)
[2022-07-03] MEDS: FUROSEMIDE 40MG TABLET PO SCH (09:41)
== END 2022-07-03 11:20 | DRG 720 ==
LOC: ER 08:14 → CVICU 11:42 → EDBEDREQ 11:56 → EDBEDREQTM 11:56 → 5EST 06-25 12:33 → 7EST 06-26 14:44 → 5EST 06-26 21:07
PROVIDERS: ADMIT Family Medicine Adult Medicine; ATTEND Family Medicine Adult Medicine
PROC: 5A1955Z Respiratory Ventilation, Greater than 96 Consecutive Hours (ICD-10-PCS; principal; 2022-06-19)
PROC: 0BH17EZ Insertion of Endotracheal Airway into Trachea, Via Natural or Artificial Opening (ICD-10-PCS; 2022-06-19)
PROC: 06HY33Z Insertion of Infusion Device into Lower Vein, Percutaneous Approach (ICD-10-PCS; 2022-06-19)
PROC: B54BZZA Ultrasonography of Right Lower Extremity Veins, Guidance (ICD-10-PCS; 2022-06-19)
PROC: 4A00X4Z Measurement of Central Nervous Electrical Activity, External Approach (ICD-10-PCS; 2022-06-20)
PROC: 02HV33Z Insertion of Infusion Device into Superior Vena Cava, Percutaneous Approach (ICD-10-PCS; 2022-06-21)
PROC: B548ZZA Ultrasonography of Superior Vena Cava, Guidance (ICD-10-PCS; 2022-06-21)
PROC: 5A09357 Assistance with Respiratory Ventilation, Less than 24 Consecutive Hours, Continuous Positive Airway Pressure (ICD-10-PCS; 2022-06-23)
PROC: 5A09357 Assistance with Respiratory Ventilation, Less than 24 Consecutive Hours, Continuous Positive Airway Pressure (ICD-10-PCS; 2022-06-25)
PROC: 5A09357 Assistance with Respiratory Ventilation, Less than 24 Consecutive Hours, Continuous Positive Airway Pressure (ICD-10-PCS; 2022-06-26)
PROC: 5A09357 Assistance with Respiratory Ventilation, Less than 24 Consecutive Hours, Continuous Positive Airway Pressure (ICD-10-PCS; 2022-06-28)
PROC: 5A09357 Assistance with Respiratory Ventilation, Less than 24 Consecutive Hours, Continuous Positive Airway Pressure (ICD-10-PCS; 2022-06-29)
DX: A41.9 Sepsis, unspecified organism (principal); J96.01 Acute respiratory failure with hypoxia; R65.21 Severe sepsis with septic shock; G92.8 Other toxic encephalopathy; J18.9 Pneumonia, unspecified organism; E87.20 Acidosis, unspecified; J44.0 Chronic obstructive pulmonary disease with (acute) lower respiratory infection; N17.9 Acute kidney failure, unspecified; I48.0 Paroxysmal atrial fibrillation; Z20.822 Contact with and (suspected) exposure to COVID-19; I16.1 Hypertensive emergency; N39.0 Urinary tract infection, site not specified; J44.9 Chronic obstructive pulmonary disease, unspecified; E03.9 Hypothyroidism, unspecified; E78.5 Hyperlipidemia, unspecified; F20.9 Schizophrenia, unspecified; F31.9 Bipolar disorder, unspecified; G40.909 Epilepsy, unspecified, not intractable, without status epilepticus; K21.9 Gastro-esophageal reflux disease without esophagitis; R74.01 Elevation of levels of liver transaminase levels; R73.9 Hyperglycemia, unspecified; E87.6 Hypokalemia; E66.9 Obesity, unspecified; Z78.1 Physical restraint status; Z88.6 Allergy status to analgesic agent; Z88.1 Allergy status to other antibiotic agents; Z88.3 Allergy status to other anti-infective agents; Z88.5 Allergy status to narcotic agent; Z91.013 Allergy to seafood; Z88.2 Allergy status to sulfonamides; Z91.018 Allergy to other foods; Z68.26 Body mass index [BMI] 26.0-26.9, adult
CPT/HCPCS: 31500; 36415; 36573; 36600; 71045; 76604; 76700; 80048; 80053; 80061; 80178; 80202; 80305; 80307; 80320; 80329; 81003; 82140; 82270; 82375; 82805; 82962; 83036; 83605; 83735; 83880; 84132; 84145; 84439; 84443; 84481; 84484; 85025; 85044; 86705; 86709; 86803; 86850; 86900; 87070; 87186; 87340; 87426; 92610; 93005; 93306; 93971; 94003; 94640; 94660; 95816; 99291; A6261; C1725; J0330; J0692; J0696; J1630; J1650; J1940; J2060; J2250; J2543; J2704; J2930; J3010; J3370; J3480; J3490; J7030; J7050; J7060; J7608; A4315; G0480

== ENCOUNTER 2022-07-09 10:33 | Inpatient (IN) | payer MEDICARE, MEDICAID ==
[~2022-07-09] VITALS: Ht 162.6 cm; Wt 77.6 kg
[~2022-07-09 10:33] MED LIST changes: +ASCO100T12 MT; +AZIT500T8 MT; +HYDR-4135 MT; +IRON45TA10 MT; +LEVE750T4 PO; +LITH150C PO; +LITH300C3 PO; +PROT20 MT; +QUET100T PO; +QUET25TA PO
[2022-07-09] MEDS ORDERED: VANCOMYCIN 1G PREMIX 200 ML IV ONE (11:00)
[2022-07-09] MEDS ORDERED: PIPERACILLIN/TAZ 3.375G PREMIX 50 ML IV ONE (11:00)
[2022-07-09] MEDS ORDERED: SODIUM CHLORIDE 0.9% 1000ML BAG (SEPSIS BOLUS) IV ONE (11:00)
[2022-07-09 11:55] LABS: BG BASE EXCESS 1.8 mmol/L (-2.0-2.0); BG CARBOXYHEMOGLOBIN 0.8 % (0.5-1.5); BG DEOXYHEMOGLOBIN 0.6 % (0.0-5.0); BG FRACTION INSPIRED OXYGEN 100; BG HCO3 ACT 27.8 mmol/L (22.0-26.0); BG METHEMOGLOBIN 0.3 % (0.0-1.5); BG OXYGEN SATURATION 99.4 % (92.0-98.5); BG OXYHEMOGLOBIN 98.3 % (94.0-97.0); BG PCO2 48.9 mmHg (35.0-45.0); BG PH 7.372 (7.350-7.450); BG PO2 238.6 mmHg (75.0-100.0); BG SAMPLE SITE RIGHT RADIAL; BG VENT MODE MASK - NRB
[2022-07-09 12:41] LABS: HEMATOCRIT. 38.1 % (36.0-48.0); HEMOGLOBIN. 11.9 g/dL (12.0-16.0); MEAN CORPUSCULAR VOLUME 89.4 fL (81.0-99.0); MEAN PLATELET VOLUME 7.7 fl (7.4-10.4); PLATELET 464 x1000/uL (130-400); RED BLOOD CELL COUNT 4.27 mill/uL (4.2-5.4); RED CELL DISTRIBUTION WIDTH 15.3 % (11.6-14.6)
[2022-07-09 12:49] LABS: CHLORIDE 112 mEq/L (98-107)
[2022-07-09 12:51] LABS: INR 1.2; PROTHROMBIN TIME 12.6 sec (9.6-11.0)
[2022-07-09 12:58] LABS: CREATINE KINASE 101 IU/L (26-192)
[2022-07-09 13:05] LABS: PLATELET ESTIMATE INCREASED
[2022-07-09] MEDS ORDERED: CLONIDINE 0.1MG TABLET PO PRN (13:30)
[2022-07-09] MEDS ORDERED: IPRATROPIUM/ALBUTEROL 0.5-3(2.5)MG/3ML NEB HHN SCH (13:30)
[2022-07-09] MEDS: LEVETIRACETAM 500MG PREMIX 100 ML IV SCH ×2 (13:30→22:23)
[2022-07-09] MEDS ORDERED: GUAIFENESIN 200MG/10ML SUGAR FREE UDC PO PRN (13:30)
[2022-07-09] MEDS: METHYLPREDNISOLONE SOD SUCC 125 MG/2 ML VIAL IV SCH ×2 (13:30→21:54)
[2022-07-09] MEDS ORDERED: ONDANSETRON HCL 4MG/2ML INJ IV PRN (13:30)
[2022-07-09] MEDS ORDERED: ACETAMINOPHEN 325MG TABLET PO PRN ×2 (13:30)
[2022-07-09] MEDS ORDERED: DOCUSATE SODIUM 100MG CAPSULE PO PRN (13:30)
[2022-07-09] MEDS: PANTOPRAZOLE SODIUM 40 MG/VIAL IV SCH (13:30)
[2022-07-09] MEDS: DEXT 5%/0.45% NACL 1000ML 1,000 ML IV SCH (13:30)
[2022-07-09] MEDS ORDERED: AZITHROMYCIN 500MG/250ML 250 ML IV NR (13:45)
[2022-07-09] MEDS: ENOXAPARIN 40MG/0.4ML SYR SUBCUT SCH (14:00)
[2022-07-09 14:29] LABS: FOLIC ACID (FOLATE) SERUM >20 ng/mL ng/mL (>5.38); VITAMIN B12 SERUM 1022 pg/mL (211-911)
[2022-07-09] MEDS: PIPERACILLIN/TAZ 3.375G PREMIX 50 ML IV SCH ×2 (14:54→22:23)
[2022-07-09] MEDS ORDERED: SODIUM CHLORIDE 10% FOR INH 15ML VIAL NEB INH SCH (18:30)
[2022-07-10] MEDS: DEXT 5%/0.45% NACL 1000ML 1,000 ML IV SCH ×2 (04:00→16:10)
[2022-07-10 04:43] LABS: CHLORIDE 112 mEq/L (98-107)
[2022-07-10 04:56] LABS: HDL CHOLESTEROL 39 mg/dL (40-59); LDL CHOLESTEROL 103 mg/dL (5-100); T4 FREE 1.14 ng/dL (0.76-1.46)
[2022-07-10] MEDS: METHYLPREDNISOLONE SOD SUCC 125 MG/2 ML VIAL IV SCH ×5 (05:18→23:29)
[2022-07-10 05:32] LABS: CLARITY URINE CLEAR (CLEAR); COLOR URINE YELLOW (YELLOW); KETONES URINE 1+ (NEGATIVE); LEUKOCYTE ESTERASE URINE 1+ (NEGATIVE); NITRITE URINE NEGATIVE (NEGATIVE); OCCULT BLOOD URINE 2+ (NEGATIVE); PH URINE 5.5 (4.5-8.0); PROTEIN URINE 1+ (NEGATIVE); UROBILINOGEN URINE 0.2 E.U./dL (0.2-1.0)
[2022-07-10] MEDS ORDERED: PIPERACILLIN/TAZOBACTAM 3.375 G in DEXTROSE 5% WATER 50 ML IV SCH ×4 (06:00)
[2022-07-10 07:29] LABS: *AMPHETAMINES SCREEN URINE NEGATIVE (NEGATIVE); *BARBITURATES SCREEN URINE NEGATIVE (NEGATIVE); *BENZODIAZEPINES SCREEN URINE NEGATIVE (NEGATIVE); *COCAINE SCREEN URINE NEGATIVE (NEGATIVE); CANNABINOID URINE SCREEN NEGATIVE (NEGATIVE); METHADONE URINE SCREEN NEGATIVE (NEGATIVE); OPIATES URINE SCREEN NEGATIVE (NEGATIVE); PHENCYCLIDINE URINE SCREEN NEGATIVE (NEGATIVE)
[2022-07-10] MEDS: LEVOTHYROXINE SODIUM 75MCG TABLET PO SCH (07:30)
[2022-07-10] MEDS ORDERED: AZITHROMYCIN 500MG/250ML 250 ML IV NR (07:45)
[2022-07-10] MEDS ORDERED: VANCOMYCIN 1G PREMIX 200 ML IV SCH (09:00)
[2022-07-10] MEDS ORDERED: LEVOTHYROXINE SODIUM 75MCG TABLET PO SCH (09:00)
[2022-07-10 09:18] LABS: BG BASE EXCESS 2.1 mmol/L (-2.0-2.0); BG CARBOXYHEMOGLOBIN 0.4 % (0.5-1.5); BG DEOXYHEMOGLOBIN 6.4 % (0.0-5.0); BG FRACTION INSPIRED OXYGEN 36; BG HCO3 ACT 28.7 mmol/L (22.0-26.0); BG METHEMOGLOBIN 0.3 % (0.0-1.5); BG OXYGEN SATURATION 93.6 % (92.0-98.5); BG OXYHEMOGLOBIN 92.9 % (94.0-97.0); BG PCO2 53.4 mmHg (35.0-45.0); BG PH 7.348 (7.350-7.450); BG PO2 72.9 mmHg (75.0-100.0); BG SAMPLE SITE RIGHT RADIAL; BG TOTAL HEMOGLOBIN 13.1 g/dL (12.0-18.0); BG VENT MODE NASAL CANNULA
[2022-07-10 10:27] VITALS: BP 155/91
[2022-07-10 10:36] VITALS: BP 155/91
[2022-07-10] MEDS: VANCOMYCIN 1G PREMIX 200 ML IV SCH (11:30)
[2022-07-10 12:00] VITALS: BP 143/92
[2022-07-10] MEDS ORDERED: IPRATROPIUM BROMIDE (0.02%) 0.5MG/2.5ML NEB HHN SCH (12:00)
[2022-07-10 14:00] VITALS: BP 141/78
[2022-07-10] MEDS: ALBUTEROL (0.083%) 2.5MG/3ML NEB HHN SCH ×2 (15:24→20:27)
[2022-07-10 16:00] VITALS: BP 142/99
[2022-07-10] MEDS: PIPERACILLIN/TAZOBACTAM 3.375 G in DEXTROSE 5% WATER 50 ML IV SCH ×2 (16:02→22:00)
[2022-07-10] MEDS: ENOXAPARIN 40MG/0.4ML SYR SUBCUT SCH (16:02)
[2022-07-10] MEDS: LEVETIRACETAM 500MG PREMIX 100 ML IV SCH ×2 (16:02→21:00)
[2022-07-10] MEDS: PANTOPRAZOLE SODIUM 40 MG/VIAL IV SCH (16:03)
[2022-07-10] MEDS: LITHIUM CARBONATE 150 MG CAPSULE PO SCH ×2 (16:10→19:07)
[2022-07-10] MEDS: LORAZEPAM 2MG/ML CPJ IV PRN (17:23)
[2022-07-10 17:55] LABS: HEMATOCRIT. 37.1 % (36.0-48.0); HEMOGLOBIN. 11.8 g/dL (12.0-16.0); MEAN CORPUSCULAR HEMOGLOBIN 27.9 pg (28.0-32.0); MEAN CORPUSCULAR VOLUME 87.6 fL (81.0-99.0); MEAN PLATELET VOLUME 7.3 fl (7.4-10.4); PLATELET 422 x1000/uL (130-400); RED BLOOD CELL COUNT 4.23 mill/uL (4.2-5.4); RED CELL DISTRIBUTION WIDTH 14.6 % (11.6-14.6)
[2022-07-10 18:00] VITALS: BP 156/92
[2022-07-10 18:24] LABS: PLATELET ESTIMATE INCREASED
[2022-07-10] MEDS: QUETIAPINE FUMARATE 50MG TABLET PO SCH (21:00)
[2022-07-11] VITALS (8 sets, daily range): BP systolic 107–159; BP diastolic 58–97
[2022-07-11] MEDS: ALBUTEROL (0.083%) 2.5MG/3ML NEB HHN SCH ×4 (01:58→20:38)
[2022-07-11] MEDS: DEXT 5%/0.45% NACL 1000ML 1,000 ML IV SCH ×2 (05:30→17:20)
[2022-07-11 06:13] LABS: HEMATOCRIT. 37.6 % (36.0-48.0); HEMOGLOBIN. 11.7 g/dL (12.0-16.0); MEAN CORPUSCULAR HEMOGLOBIN 27.7 pg (28.0-32.0); MEAN CORPUSCULAR VOLUME 88.8 fL (81.0-99.0); MEAN PLATELET VOLUME 7.5 fl (7.4-10.4); PLATELET 350 x1000/uL (130-400); RED BLOOD CELL COUNT 4.24 mill/uL (4.2-5.4); RED CELL DISTRIBUTION WIDTH 15.1 % (11.6-14.6)
[2022-07-11] MEDS: PIPERACILLIN/TAZOBACTAM 3.375 G in DEXTROSE 5% WATER 50 ML IV SCH ×3 (06:30→22:01)
[2022-07-11] MEDS: LEVOTHYROXINE SODIUM 75MCG TABLET PO SCH (06:30)
[2022-07-11] MEDS: METHYLPREDNISOLONE SOD SUCC 125 MG/2 ML VIAL IV SCH ×2 (06:30→13:26)
[2022-07-11] MEDS ORDERED: AZITHROMYCIN 500 MG in DEXT 5% WATER 250 ML IV SCH (09:00)
[2022-07-11] MEDS: PANTOPRAZOLE SODIUM 40 MG/VIAL IV SCH (09:39)
[2022-07-11] MEDS: VANCOMYCIN 1G PREMIX 200 ML IV SCH (09:39)
[2022-07-11] MEDS: LITHIUM CARBONATE 150 MG CAPSULE PO SCH ×3 (09:40→22:02)
[2022-07-11] MEDS: QUETIAPINE FUMARATE 50MG TABLET PO SCH ×2 (09:40→20:38)
[2022-07-11 11:24] LABS: PHOSPHORUS 3.2 mg/dL (2.5-4.9)
[2022-07-11 12:42] LABS: PLATELET ESTIMATE NORMAL
[2022-07-11] MEDS ORDERED: POTASSIUM CHLORIDE 20MEQ TABLET SR PO SCH (13:00)
[2022-07-11] MEDS: AZITHROMYCIN 500 MG in DEXT 5% WATER 250 ML IV SCH (13:25)
[2022-07-11] MEDS: LEVETIRACETAM 500MG PREMIX 100 ML IV SCH ×2 (13:26→20:56)
[2022-07-11] MEDS: GABAPENTIN 300MG CAPSULE PO SCH ×2 (17:19→22:01)
[2022-07-11] MEDS: ENOXAPARIN 40MG/0.4ML SYR SUBCUT SCH (17:20)
[2022-07-11] MEDS: METHYLPREDNISOLONE SOD SUCC 40 MG/ML VIAL IV SCH (23:09)
[2022-07-12] VITALS (36 sets, daily range): BP systolic 76–152; BP diastolic 30–103
[2022-07-12] MEDS: ALBUTEROL (0.083%) 2.5MG/3ML NEB HHN SCH ×4 (02:31→20:29)
[2022-07-12] MEDS: LITHIUM CARBONATE 150 MG CAPSULE PO SCH ×3 (05:31→22:27)
[2022-07-12] MEDS: GABAPENTIN 300MG CAPSULE PO SCH ×3 (05:31→22:28)
[2022-07-12] MEDS: PIPERACILLIN/TAZOBACTAM 3.375 G in DEXTROSE 5% WATER 50 ML IV SCH ×3 (05:31→22:27)
[2022-07-12] MEDS: LEVOTHYROXINE SODIUM 75MCG TABLET PO SCH (05:31)
[2022-07-12] MEDS: DEXT 5%/0.45% NACL 1000ML 1,000 ML IV SCH ×2 (06:00→21:30)
[2022-07-12 08:02] LABS: PHOSPHORUS 2.7 mg/dL (2.5-4.9)
[2022-07-12] MEDS ORDERED: FAMOTIDINE 20MG/2ML VIAL IV SCH (09:00)
[2022-07-12] MEDS: LEVETIRACETAM 500MG PREMIX 100 ML IV SCH ×2 (09:12→21:25)
[2022-07-12] MEDS: QUETIAPINE FUMARATE 50MG TABLET PO SCH ×2 (09:13→21:26)
[2022-07-12] MEDS: METHYLPREDNISOLONE SOD SUCC 40 MG/ML VIAL IV SCH ×2 (09:15→21:25)
[2022-07-12] MEDS: VANCOMYCIN 1G PREMIX 200 ML IV SCH (11:33)
[2022-07-12 11:37] LABS: BG BASE EXCESS 5.3 mmol/L (-2.0-2.0); BG CARBOXYHEMOGLOBIN 0.1 % (0.5-1.5); BG DEOXYHEMOGLOBIN 18.4 % (0.0-5.0); BG FRACTION INSPIRED OXYGEN 38; BG HCO3 ACT 32.4 mmol/L (22.0-26.0); BG METHEMOGLOBIN 0.1 % (0.0-1.5); BG OXYGEN SATURATION 81.6 % (92.0-98.5); BG OXYHEMOGLOBIN 81.4 % (94.0-97.0); BG PCO2 60.1 mmHg (35.0-45.0); BG PH 7.349 (7.350-7.450); BG PO2 48.3 mmHg (75.0-100.0); BG SAMPLE SITE RIGHT RADIAL; BG TOTAL HEMOGLOBIN 11.7 g/dL (12.0-18.0); BG VENT MODE NASAL CANNULA
[2022-07-12] MEDS: AZITHROMYCIN 500 MG in DEXT 5% WATER 250 ML IV SCH (13:04)
[2022-07-12 14:25] LABS: BG BASE EXCESS 5.5 mmol/L (-2.0-2.0); BG CARBOXYHEMOGLOBIN 0.3 % (0.5-1.5); BG DEOXYHEMOGLOBIN 0.8 % (0.0-5.0); BG FRACTION INSPIRED OXYGEN 100; BG HCO3 ACT 33.1 mmol/L (22.0-26.0); BG OXYGEN SATURATION 99.2 % (92.0-98.5); BG OXYHEMOGLOBIN 98.9 % (94.0-97.0); BG PCO2 64.8 mmHg (35.0-45.0); BG PH 7.326 (7.350-7.450); BG SAMPLE SITE RIGHT RADIAL; BG TOTAL HEMOGLOBIN 11.5 g/dL (12.0-18.0); BG VENT MODE HIGH FLOW
[2022-07-12] MEDS: ENOXAPARIN 40MG/0.4ML SYR SUBCUT SCH (14:37)
[2022-07-12] MEDS ORDERED: VECURONIUM BROMIDE 10 MG/VIAL IV ONE (17:21)
[2022-07-12] MEDS ORDERED: ETOMIDATE 2MG/ML 10ML VIAL IV ONE (17:21)
[2022-07-12] MEDS ORDERED: FENTANYL 2500MCG/250ML PMX 250 ML IV ONE (17:45)
[2022-07-12] MEDS ORDERED: FENTANYL CITRATE 2,500 MCG in SODIUM CHLORIDE 0.9% 200 ML IV PRN (17:45)
[2022-07-12] MEDS ORDERED: PROPOFOL 10MG/ML 100ML 100 ML IV PRN (17:45)
[2022-07-12 18:08] LABS: BG BASE EXCESS 4.9 mmol/L (-2.0-2.0); BG CARBOXYHEMOGLOBIN 0.2 % (0.5-1.5); BG DEOXYHEMOGLOBIN 4.5 % (0.0-5.0); BG FRACTION INSPIRED OXYGEN 100; BG HCO3 ACT 29.9 mmol/L (22.0-26.0); BG METHEMOGLOBIN 0.2 % (0.0-1.5); BG OXYGEN SATURATION 95.5 % (92.0-98.5); BG OXYHEMOGLOBIN 95.1 % (94.0-97.0); BG PCO2 45.6 mmHg (35.0-45.0); BG PH 7.434 (7.350-7.450); BG SAMPLE SITE RIGHT RADIAL; BG TOTAL HEMOGLOBIN 11.8 g/dL (12.0-18.0); BG VENT MODE VENT - AC
[2022-07-12] MEDS: GUAIFENESIN 200MG/10ML SUGAR FREE UDC PO SCH (18:32)
[2022-07-12 20:04] LABS: BASOPHILS % 0.4 % (0.0-2.0); HEMATOCRIT. 37.4 % (36.0-48.0); HEMOGLOBIN. 11.5 g/dL (12.0-16.0); LYMPHOCYTES % 9.6 % (20.0-50.0); MEAN CORPUSCULAR HEMOGLOBIN 27.7 pg (28.0-32.0); MEAN PLATELET VOLUME 7.4 fl (7.4-10.4); MONOCYTES % 4.3 % (2.0-8.0); NEUTROPHILS % 85.7 % (40.0-76.0); PLATELET 316 x1000/uL (130-400); RED BLOOD CELL COUNT 4.15 mill/uL (4.2-5.4); RED CELL DISTRIBUTION WIDTH 15.7 % (11.6-14.6)
[2022-07-12] MEDS: IPRATROPIUM BROMIDE (0.02%) 0.5MG/2.5ML NEB HHN SCH (20:29)
[2022-07-13] VITALS (80 sets, daily range): BP systolic 73–172; BP diastolic 38–143
[2022-07-13] MEDS: IPRATROPIUM BROMIDE (0.02%) 0.5MG/2.5ML NEB HHN SCH ×6 (00:07→20:31)
[2022-07-13] MEDS: ALBUTEROL (0.083%) 2.5MG/3ML NEB HHN SCH ×6 (00:08→20:31)
[2022-07-13] MEDS: GUAIFENESIN 200MG/10ML SUGAR FREE UDC PO SCH ×5 (01:53→23:25)
[2022-07-13] MEDS: VANCOMYCIN 1G PREMIX 200 ML IV SCH ×2 (04:00→21:56)
[2022-07-13 05:57] LABS: HEMATOCRIT 33.8 % (36.0-48.0); HEMOGLOBIN 10.6 g/dL (12.0-16.0); MEAN CORPUSCULAR VOLUME 89.5 fL (81.0-99.0); PLATELET 242 x1000/uL (130-400); RED BLOOD CELL COUNT 3.77 mill/uL (4.2-5.4); RED CELL DISTRIBUTION WIDTH 15.1 % (11.6-14.6)
[2022-07-13] MEDS: PIPERACILLIN/TAZOBACTAM 3.375 G in DEXTROSE 5% WATER 50 ML IV SCH ×3 (06:50→21:55)
[2022-07-13] MEDS: DEXT 5%/0.45% NACL 1000ML 1,000 ML IV SCH ×2 (06:50→09:10)
[2022-07-13] MEDS: LITHIUM CARBONATE 150 MG CAPSULE PO SCH ×3 (06:51→21:55)
[2022-07-13] MEDS: GABAPENTIN 300MG CAPSULE PO SCH ×3 (06:51→21:55)
[2022-07-13] MEDS: LEVOTHYROXINE SODIUM 75MCG TABLET PO SCH (08:07)
[2022-07-13 08:30] LABS: BG BASE EXCESS 6.3 mmol/L (-2.0-2.0); BG CARBOXYHEMOGLOBIN 0.3 % (0.5-1.5); BG DEOXYHEMOGLOBIN 1.1 % (0.0-5.0); BG FRACTION INSPIRED OXYGEN 90; BG METHEMOGLOBIN 0.3 % (0.0-1.5); BG OXYGEN SATURATION 98.9 % (92.0-98.5); BG OXYHEMOGLOBIN 98.3 % (94.0-97.0); BG PCO2 45.5 mmHg (35.0-45.0); BG PH 7.451 (7.350-7.450); BG PO2 201.9 mmHg (75.0-100.0); BG SAMPLE SITE RIGHT RADIAL; BG TOTAL HEMOGLOBIN 10.7 g/dL (12.0-18.0); BG VENT MODE VENT - APRV
[2022-07-13] MEDS: QUETIAPINE FUMARATE 50MG TABLET PO SCH ×2 (08:46→21:56)
[2022-07-13] MEDS: FAMOTIDINE 20MG/2ML VIAL IV SCH (08:46)
[2022-07-13] MEDS: METHYLPREDNISOLONE SOD SUCC 40 MG/ML VIAL IV SCH ×2 (08:46→21:56)
[2022-07-13] MEDS: LEVETIRACETAM 500MG PREMIX 100 ML IV SCH ×2 (08:46→21:56)
[2022-07-13 11:04] LABS: TOTAL IRON BINDING CAPACITY 211 ug/dL (250-450)
[2022-07-13] MEDS: KCL 20MEQ/100ML PREMIX 100 ML IV SCH ×2 (11:48→13:20)
[2022-07-13] MEDS ORDERED: AZITHROMYCIN 500 MG in DEXT 5% WATER 250 ML IV NR (13:30)
[2022-07-13] MEDS: ENOXAPARIN 40MG/0.4ML SYR SUBCUT SCH (14:12)
[2022-07-13] MEDS: LORAZEPAM 2MG/ML CPJ IV PRN (23:07)
[2022-07-14] VITALS (40 sets, daily range): BP systolic 67–157; BP diastolic 32–116
[2022-07-14] MEDS: ALBUTEROL (0.083%) 2.5MG/3ML NEB HHN SCH ×7 (00:03→23:56)
[2022-07-14] MEDS: IPRATROPIUM BROMIDE (0.02%) 0.5MG/2.5ML NEB HHN SCH ×5 (00:03→23:56)
[2022-07-14 05:37] LABS: HEMATOCRIT. 28.1 % (36.0-48.0); HEMOGLOBIN. 9.1 g/dL (12.0-16.0); MEAN CORPUSCULAR HEMOGLOBIN 28.9 pg (28.0-32.0); MEAN CORPUSCULAR VOLUME 89.3 fL (81.0-99.0); RED BLOOD CELL COUNT 3.15 mill/uL (4.2-5.4); RED CELL DISTRIBUTION WIDTH 15.1 % (11.6-14.6)
[2022-07-14] MEDS: LITHIUM CARBONATE 150 MG CAPSULE PO SCH ×3 (05:58→21:21)
[2022-07-14] MEDS: GUAIFENESIN 200MG/10ML SUGAR FREE UDC PO SCH ×3 (05:58→18:13)
[2022-07-14] MEDS: GABAPENTIN 300MG CAPSULE PO SCH ×3 (05:58→21:20)
[2022-07-14] MEDS: PIPERACILLIN/TAZOBACTAM 3.375 G in DEXTROSE 5% WATER 50 ML IV SCH ×4 (05:58→22:00)
[2022-07-14] MEDS: LEVOTHYROXINE SODIUM 75MCG TABLET PO SCH (08:32)
[2022-07-14] MEDS: FAMOTIDINE 20MG/2ML VIAL IV SCH (08:32)
[2022-07-14] MEDS: LEVETIRACETAM 500MG PREMIX 100 ML IV SCH ×2 (08:32→21:17)
[2022-07-14] MEDS: QUETIAPINE FUMARATE 50MG TABLET PO SCH ×2 (08:32→21:20)
[2022-07-14] MEDS: METHYLPREDNISOLONE SOD SUCC 40 MG/ML VIAL IV SCH ×2 (08:32→21:19)
[2022-07-14 09:45] LABS: BG BASE EXCESS 2.4 mmol/L (-2.0-2.0); BG CARBOXYHEMOGLOBIN 0.3 % (0.5-1.5); BG DEOXYHEMOGLOBIN 6.8 % (0.0-5.0); BG FRACTION INSPIRED OXYGEN 40; BG HCO3 ACT 25.8 mmol/L (22.0-26.0); BG METHEMOGLOBIN 0.3 % (0.0-1.5); BG OXYGEN SATURATION 93.2 % (92.0-98.5); BG OXYHEMOGLOBIN 92.6 % (94.0-97.0); BG PCO2 35.5 mmHg (35.0-45.0); BG PO2 65.9 mmHg (75.0-100.0); BG TOTAL HEMOGLOBIN 10.2 g/dL (12.0-18.0); BG VENT MODE VENT - AC
[2022-07-14 10:23] LABS: PLATELET ESTIMATE NORMAL
[2022-07-14 10:24] LABS: MEAN PLATELET VOLUME 8.6 fl (7.4-10.4); PLATELET 171 x1000/uL (130-400)
[2022-07-14 12:56] LABS: CREATINE KINASE 35 IU/L (26-192); CREATINE KINASE MB FRACTION < 1.0 ng/mL (0.5-3.6)
[2022-07-14] MEDS: DEXT 5%/0.45% NACL 1000ML 1,000 ML IV SCH (13:42)
[2022-07-14] MEDS: ENOXAPARIN 40MG/0.4ML SYR SUBCUT SCH (13:43)
[2022-07-14] MEDS: FERROUS SULFATE 325MG TABLET PO SCH ×2 (13:44→18:13)
[2022-07-14 21:08] LABS: CREATINE KINASE 29 IU/L (26-192); CREATINE KINASE MB FRACTION < 1.0 ng/mL (0.5-3.6)
[2022-07-14] MEDS: VANCOMYCIN 750MG PREMIX 150 ML IV SCH (21:26)
[2022-07-15] VITALS (37 sets, daily range): BP systolic 92–156; BP diastolic 45–90
[2022-07-15 01:51] LABS: CREATINE KINASE 28 IU/L (26-192); CREATINE KINASE MB FRACTION < 1.0 ng/mL (0.5-3.6)
[2022-07-15] MEDS: DEXT 5%/0.45% NACL 1000ML 1,000 ML IV SCH (02:50)
[2022-07-15] MEDS: ALBUTEROL (0.083%) 2.5MG/3ML NEB HHN SCH ×3 (03:54→11:53)
[2022-07-15] MEDS: IPRATROPIUM BROMIDE (0.02%) 0.5MG/2.5ML NEB HHN SCH ×5 (03:54→20:16)
[2022-07-15] MEDS: PIPERACILLIN/TAZOBACTAM 3.375 G in DEXTROSE 5% WATER 50 ML IV SCH ×2 (05:00→14:41)
[2022-07-15 05:40] LABS: HEMATOCRIT. 29.5 % (36.0-48.0); HEMOGLOBIN. 9.6 g/dL (12.0-16.0); MEAN CORPUSCULAR HEMOGLOBIN 28.8 pg (28.0-32.0); MEAN CORPUSCULAR VOLUME 88.4 fL (81.0-99.0); MEAN PLATELET VOLUME 7.8 fl (7.4-10.4); PLATELET 199 x1000/uL (130-400); RED BLOOD CELL COUNT 3.34 mill/uL (4.2-5.4); RED CELL DISTRIBUTION WIDTH 15.2 % (11.6-14.6)
[2022-07-15 05:52] LABS: CHLORIDE 115 mEq/L (98-107)
[2022-07-15] MEDS: LITHIUM CARBONATE 150 MG CAPSULE PO SCH ×3 (06:09→21:03)
[2022-07-15] MEDS: GABAPENTIN 300MG CAPSULE PO SCH ×3 (06:09→21:03)
[2022-07-15] MEDS: GUAIFENESIN 200MG/10ML SUGAR FREE UDC PO SCH ×4 (06:10→17:13)
[2022-07-15 08:29] LABS: BG BASE EXCESS 3.1 mmol/L (-2.0-2.0); BG CARBOXYHEMOGLOBIN 0.3 % (0.5-1.5); BG FRACTION INSPIRED OXYGEN 40; BG HCO3 ACT 27.4 mmol/L (22.0-26.0); BG METHEMOGLOBIN 0.3 % (0.0-1.5); BG OXYGEN SATURATION 89.9 % (92.0-98.5); BG OXYHEMOGLOBIN 89.4 % (94.0-97.0); BG PCO2 40.6 mmHg (35.0-45.0); BG PH 7.447 (7.350-7.450); BG PO2 57.8 mmHg (75.0-100.0); BG SAMPLE SITE RIGHT RADIAL; BG TOTAL HEMOGLOBIN 8.1 g/dL (12.0-18.0); BG TOTAL RESPIRATORY RATE 15 b/min; BG VENT MODE VENT - AC
[2022-07-15] MEDS: FAMOTIDINE 20MG/2ML VIAL IV SCH (08:36)
[2022-07-15] MEDS: QUETIAPINE FUMARATE 50MG TABLET PO SCH (08:36)
[2022-07-15] MEDS: METHYLPREDNISOLONE SOD SUCC 40 MG/ML VIAL IV SCH ×2 (08:36→21:03)
[2022-07-15] MEDS: LEVOTHYROXINE SODIUM 75MCG TABLET PO SCH (08:36)
[2022-07-15] MEDS: LEVETIRACETAM 500MG PREMIX 100 ML IV SCH ×2 (08:36→21:03)
[2022-07-15] MEDS: FERROUS SULFATE 325MG TABLET PO SCH ×3 (08:36→17:13)
[2022-07-15 13:38] LABS: PLATELET ESTIMATE NORMAL
[2022-07-15 13:44] LABS: BG BASE EXCESS 0.2 mmol/L (-2.0-2.0); BG CARBOXYHEMOGLOBIN 0.3 % (0.5-1.5); BG FRACTION INSPIRED OXYGEN 40; BG HCO3 ACT 24.8 mmol/L (22.0-26.0); BG METHEMOGLOBIN 0.2 % (0.0-1.5); BG OXYHEMOGLOBIN 97.5 % (94.0-97.0); BG PCO2 40.2 mmHg (35.0-45.0); BG PH 7.408 (7.350-7.450); BG PO2 118.4 mmHg (75.0-100.0); BG SAMPLE SITE LEFT RADIAL; BG TOTAL HEMOGLOBIN 10.7 g/dL (12.0-18.0); BG VENT MODE VENT - CPAP
[2022-07-15] MEDS: VANCOMYCIN 750MG PREMIX 150 ML IV SCH (14:41)
[2022-07-15] MEDS: ENOXAPARIN 40MG/0.4ML SYR SUBCUT SCH (14:42)
[2022-07-15] MEDS: QUETIAPINE FUMARATE 25MG TABLET PO SCH (21:03)
[2022-07-16] VITALS (24 sets, daily range): BP systolic 105–162; BP diastolic 49–101
[2022-07-16] MEDS: GUAIFENESIN 200MG/10ML SUGAR FREE UDC PO SCH ×5 (00:14→23:26)
[2022-07-16] MEDS: IPRATROPIUM BROMIDE (0.02%) 0.5MG/2.5ML NEB HHN SCH ×6 (00:23→20:50)
[2022-07-16 05:29] LABS: HEMATOCRIT. 29.8 % (36.0-48.0); HEMOGLOBIN. 9.3 g/dL (12.0-16.0); MEAN CORPUSCULAR HEMOGLOBIN 27.9 pg (28.0-32.0); MEAN CORPUSCULAR VOLUME 89.3 fL (81.0-99.0); MEAN PLATELET VOLUME 7.9 fl (7.4-10.4); PLATELET 231 x1000/uL (130-400); RED BLOOD CELL COUNT 3.34 mill/uL (4.2-5.4); RED CELL DISTRIBUTION WIDTH 15.7 % (11.6-14.6)
[2022-07-16] MEDS: LITHIUM CARBONATE 150 MG CAPSULE PO SCH ×3 (05:41→21:08)
[2022-07-16] MEDS: GABAPENTIN 300MG CAPSULE PO SCH ×3 (05:45→21:16)
[2022-07-16 06:01] LABS: CHLORIDE 117 mEq/L (98-107)
[2022-07-16 06:04] LABS: PHOSPHORUS 2.6 mg/dL (2.5-4.9)
[2022-07-16 08:26] LABS: BG BASE EXCESS 3.2 mmol/L (-2.0-2.0); BG CARBOXYHEMOGLOBIN 0.1 % (0.5-1.5); BG DEOXYHEMOGLOBIN 3.3 % (0.0-5.0); BG FRACTION INSPIRED OXYGEN 36; BG HCO3 ACT 27.9 mmol/L (22.0-26.0); BG OXYGEN SATURATION 96.7 % (92.0-98.5); BG OXYHEMOGLOBIN 96.6 % (94.0-97.0); BG PCO2 42.9 mmHg (35.0-45.0); BG PH 7.431 (7.350-7.450); BG PO2 88.9 mmHg (75.0-100.0); BG SAMPLE SITE LEFT RADIAL; BG TOTAL HEMOGLOBIN 10.5 g/dL (12.0-18.0); BG VENT MODE NASAL CANNULA
[2022-07-16] MEDS: FERROUS SULFATE 325MG TABLET PO SCH ×3 (08:26→16:57)
[2022-07-16] MEDS: QUETIAPINE FUMARATE 25MG TABLET PO SCH (08:26)
[2022-07-16] MEDS: LEVETIRACETAM 500MG PREMIX 100 ML IV SCH ×2 (08:27→21:07)
[2022-07-16] MEDS: METHYLPREDNISOLONE SOD SUCC 40 MG/ML VIAL IV SCH ×2 (08:27→21:07)
[2022-07-16] MEDS: VANCOMYCIN 750MG PREMIX 150 ML IV SCH (08:27)
[2022-07-16] MEDS: FAMOTIDINE 20MG/2ML VIAL IV SCH (08:27)
[2022-07-16 09:50] LABS: PLATELET ESTIMATE NORMAL
[2022-07-16] MEDS: ENOXAPARIN 40MG/0.4ML SYR SUBCUT SCH (14:11)
[2022-07-16] MEDS: QUETIAPINE FUMARATE 50MG TABLET PO SCH (21:08)
[2022-07-16] MEDS: LEVETIRACETAM 500MG TABLET PO SCH (21:08)
[2022-07-17] VITALS (12 sets, daily range): BP systolic 106–169; BP diastolic 58–111
[2022-07-17] MEDS: IPRATROPIUM BROMIDE (0.02%) 0.5MG/2.5ML NEB HHN SCH ×5 (00:36→16:04)
[2022-07-17 02:16] LABS: HEMATOCRIT. 33.8 % (36.0-48.0); HEMOGLOBIN. 10.8 g/dL (12.0-16.0); MEAN CORPUSCULAR HEMOGLOBIN 28.1 pg (28.0-32.0); MEAN CORPUSCULAR VOLUME 88.1 fL (81.0-99.0); MEAN PLATELET VOLUME 7.8 fl (7.4-10.4); PLATELET 304 x1000/uL (130-400); RED BLOOD CELL COUNT 3.83 mill/uL (4.2-5.4); RED CELL DISTRIBUTION WIDTH 15.6 % (11.6-14.6)
[2022-07-17 02:35] LABS: CHLORIDE 115 mEq/L (98-107)
[2022-07-17] MEDS: VANCOMYCIN 750MG PREMIX 150 ML IV SCH (02:45)
[2022-07-17] MEDS: GABAPENTIN 300MG CAPSULE PO SCH ×3 (05:42→21:48)
[2022-07-17] MEDS: LITHIUM CARBONATE 150 MG CAPSULE PO SCH ×3 (05:42→21:48)
[2022-07-17] MEDS: GUAIFENESIN 200MG/10ML SUGAR FREE UDC PO SCH ×4 (05:42→23:41)
[2022-07-17] MEDS ORDERED: SODIUM POLYSTYRENE SULFONATE 15 G/60 ML BOT PO NR (08:00)
[2022-07-17 08:33] LABS: BG BASE EXCESS 3.9 mmol/L (-2.0-2.0); BG CARBOXYHEMOGLOBIN 0.1 % (0.5-1.5); BG DEOXYHEMOGLOBIN 4.4 % (0.0-5.0); BG FRACTION INSPIRED OXYGEN 36; BG METHEMOGLOBIN 0.2 % (0.0-1.5); BG OXYGEN SATURATION 95.6 % (92.0-98.5); BG OXYHEMOGLOBIN 95.3 % (94.0-97.0); BG PCO2 46.3 mmHg (35.0-45.0); BG PH 7.415 (7.350-7.450); BG SAMPLE SITE RIGHT RADIAL; BG TOTAL HEMOGLOBIN 11.3 g/dL (12.0-18.0); BG VENT MODE NASAL CANNULA
[2022-07-17] MEDS: FAMOTIDINE 20MG/2ML VIAL IV SCH (09:49)
[2022-07-17] MEDS: FERROUS SULFATE 325MG TABLET PO SCH ×3 (09:49→19:13)
[2022-07-17] MEDS: QUETIAPINE FUMARATE 50MG TABLET PO SCH ×2 (09:50→21:48)
[2022-07-17] MEDS: LEVETIRACETAM 500MG TABLET PO SCH ×2 (09:50→21:48)
[2022-07-17] MEDS: METHYLPREDNISOLONE SOD SUCC 40 MG/ML VIAL IV SCH ×2 (09:50→21:48)
[2022-07-17] MEDS: LEVOTHYROXINE SODIUM 50MCG TABLET PO SCH (09:55)
[2022-07-17 14:05] LABS: PLATELET ESTIMATE NORMAL
[2022-07-17] MEDS: ENOXAPARIN 40MG/0.4ML SYR SUBCUT SCH (15:36)
[2022-07-18] VITALS (8 sets, daily range): BP systolic 95–127; BP diastolic 56–82
[2022-07-18] MEDS: GUAIFENESIN 200MG/10ML SUGAR FREE UDC PO SCH ×4 (05:11→22:16)
[2022-07-18] MEDS: GABAPENTIN 300MG CAPSULE PO SCH ×3 (05:11→22:16)
[2022-07-18] MEDS: LITHIUM CARBONATE 150 MG CAPSULE PO SCH ×2 (05:12→17:44)
[2022-07-18 05:52] LABS: PROTHROMBIN TIME 10.6 sec (9.6-11.0)
[2022-07-18 06:31] LABS: HEMATOCRIT. 32.3 % (36.0-48.0); HEMOGLOBIN. 10.5 g/dL (12.0-16.0); MEAN CORPUSCULAR HEMOGLOBIN 28.3 pg (28.0-32.0); MEAN CORPUSCULAR VOLUME 87.6 fL (81.0-99.0); MEAN PLATELET VOLUME 7.9 fl (7.4-10.4); PLATELET 349 x1000/uL (130-400); RED BLOOD CELL COUNT 3.69 mill/uL (4.2-5.4); RED CELL DISTRIBUTION WIDTH 15.6 % (11.6-14.6)
[2022-07-18 07:49] LABS: CHLORIDE 108 mEq/L (98-107)
[2022-07-18] MEDS ORDERED: SODIUM POLYSTYRENE SULFONATE 15 G/60 ML BOT PO NR (08:15)
[2022-07-18] MEDS: METHYLPREDNISOLONE SOD SUCC 40 MG/ML VIAL IV SCH ×2 (11:02→22:16)
[2022-07-18] MEDS: FAMOTIDINE 20MG TABLET PO SCH (11:02)
[2022-07-18] MEDS: LEVOTHYROXINE SODIUM 50MCG TABLET PO SCH (11:02)
[2022-07-18] MEDS: FERROUS SULFATE 325MG TABLET PO SCH ×3 (11:02→17:44)
[2022-07-18] MEDS: QUETIAPINE FUMARATE 50MG TABLET PO SCH ×2 (11:02→22:17)
[2022-07-18] MEDS: LEVETIRACETAM 500MG TABLET PO SCH ×2 (11:02→22:16)
[2022-07-18] MEDS ORDERED: VANCOMYCIN 1G PREMIX 200 ML IV SCH (12:00)
[2022-07-18] MEDS: ENOXAPARIN 40MG/0.4ML SYR SUBCUT SCH (13:52)
[2022-07-18 13:53] LABS: PLATELET ESTIMATE NORMAL
[2022-07-19 03:23] LABS: HEMATOCRIT. 33.6 % (36.0-48.0); HEMOGLOBIN. 10.8 g/dL (12.0-16.0); MEAN CORPUSCULAR HEMOGLOBIN 28.1 pg (28.0-32.0); MEAN CORPUSCULAR VOLUME 87.6 fL (81.0-99.0); MEAN PLATELET VOLUME 7.4 fl (7.4-10.4); PLATELET 402 x1000/uL (130-400); RED BLOOD CELL COUNT 3.84 mill/uL (4.2-5.4); RED CELL DISTRIBUTION WIDTH 15.5 % (11.6-14.6)
[2022-07-19 03:29] LABS: PROTHROMBIN TIME 10.6 sec (9.6-11.0)
[2022-07-19 03:39] LABS: CHLORIDE 107 mEq/L (98-107)
[2022-07-19 04:00] VITALS: BP 113/62
[2022-07-19 05:07] LABS: PLATELET ESTIMATE NORMAL
[2022-07-19] MEDS: GUAIFENESIN 200MG/10ML SUGAR FREE UDC PO SCH ×3 (06:00→18:21)
[2022-07-19] MEDS: GABAPENTIN 300MG CAPSULE PO SCH ×3 (06:00→22:44)
[2022-07-19] MEDS: LEVOTHYROXINE SODIUM 50MCG TABLET PO SCH (06:31)
[2022-07-19] MEDS: FERROUS SULFATE 325MG TABLET PO SCH ×3 (06:31→18:22)
[2022-07-19 08:00] VITALS: BP 119/65
[2022-07-19] MEDS: LEVETIRACETAM 500MG TABLET PO SCH ×2 (08:17→22:44)
[2022-07-19] MEDS: QUETIAPINE FUMARATE 50MG TABLET PO SCH ×2 (08:18→22:44)
[2022-07-19] MEDS: FAMOTIDINE 20MG TABLET PO SCH (08:18)
[2022-07-19] MEDS: LITHIUM CARBONATE 150 MG CAPSULE PO SCH ×2 (08:18→18:22)
[2022-07-19] MEDS ORDERED: METHYLPREDNISOLONE SOD SUCC 40 MG/ML VIAL IV SCH (09:00)
[2022-07-19 09:04] LABS: BG BASE EXCESS 4.8 mmol/L (-2.0-2.0); BG CARBOXYHEMOGLOBIN 0.2 % (0.5-1.5); BG DEOXYHEMOGLOBIN 9.7 % (0.0-5.0); BG FRACTION INSPIRED OXYGEN 36; BG HCO3 ACT 30.3 mmol/L (22.0-26.0); BG METHEMOGLOBIN 0.2 % (0.0-1.5); BG OXYGEN SATURATION 90.3 % (92.0-98.5); BG OXYHEMOGLOBIN 89.9 % (94.0-97.0); BG PCO2 48.9 mmHg (35.0-45.0); BG PO2 57.8 mmHg (75.0-100.0); BG SAMPLE SITE RIGHT RADIAL; BG TOTAL HEMOGLOBIN 11.2 g/dL (12.0-18.0); BG VENT MODE NASAL CANNULA
[2022-07-19] MEDS ORDERED: PROPOFOL 200MG/20ML VIAL IV ONE (11:45)
[2022-07-19] MEDS ORDERED: LIDOCAINE HCL 1% 10 MG/ML 10ML VIAL ONE (11:45)
[2022-07-19] MEDS ORDERED: EPHEDRINE SULFATE 50MG/ML VIAL ONE (11:46)
[2022-07-19] MEDS ORDERED: GLYCOPYRROLATE 0.2 MG/ML 2ML VIAL ONE (11:48)
[2022-07-19 16:00] VITALS: BP 126/58
[2022-07-19 20:00] VITALS: BP 100/55
[2022-07-20] VITALS (39 sets, daily range): BP systolic 75–185; BP diastolic 8–117
[2022-07-20] MEDS ORDERED: NOREPINEPHRINE 8 MG in DEXT 5% WATER 242 ML IV PRN (03:15)
[2022-07-20 04:02] LABS: BG BASE EXCESS 3.9 mmol/L (-2.0-2.0); BG CARBOXYHEMOGLOBIN 0.3 % (0.5-1.5); BG DEOXYHEMOGLOBIN 1.8 % (0.0-5.0); BG FRACTION INSPIRED OXYGEN 28; BG HCO3 ACT 30.7 mmol/L (22.0-26.0); BG METHEMOGLOBIN 0.2 % (0.0-1.5); BG OXYGEN SATURATION 98.2 % (92.0-98.5); BG OXYHEMOGLOBIN 97.7 % (94.0-97.0); BG PCO2 57.4 mmHg (35.0-45.0); BG PH 7.346 (7.350-7.450); BG PO2 134.1 mmHg (75.0-100.0); BG TOTAL HEMOGLOBIN 10.8 g/dL (12.0-18.0); BG VENT MODE NASAL CANNULA
[2022-07-20] MEDS: SODIUM CHLORIDE 0.9% 1,000 ML IV NR ×2 (04:54→10:56)
[2022-07-20 05:47] LABS: BASOPHILS % 0.1 % (0.0-2.0); HEMATOCRIT. 29.3 % (36.0-48.0); HEMOGLOBIN. 9.5 g/dL (12.0-16.0); LYMPHOCYTES % 17.1 % (20.0-50.0); MEAN CORPUSCULAR HEMOGLOBIN 28.5 pg (28.0-32.0); MEAN CORPUSCULAR VOLUME 88.2 fL (81.0-99.0); MEAN PLATELET VOLUME 7.2 fl (7.4-10.4); MONOCYTES % 9.3 % (2.0-8.0); NEUTROPHILS % 72.5 % (40.0-76.0); PLATELET 379 x1000/uL (130-400); RED BLOOD CELL COUNT 3.32 mill/uL (4.2-5.4); RED CELL DISTRIBUTION WIDTH 15.7 % (11.6-14.6)
[2022-07-20 06:03] LABS: CHLORIDE 110 mEq/L (98-107)
[2022-07-20] MEDS: GABAPENTIN 300MG CAPSULE PO SCH ×3 (07:21→22:05)
[2022-07-20] MEDS: GUAIFENESIN 200MG/10ML SUGAR FREE UDC PO SCH ×4 (07:22→17:20)
[2022-07-20] MEDS: LITHIUM CARBONATE 150 MG CAPSULE PO SCH ×2 (08:31→17:21)
[2022-07-20] MEDS: LEVETIRACETAM 500MG TABLET PO SCH ×2 (08:31→21:16)
[2022-07-20] MEDS: LEVOTHYROXINE SODIUM 50MCG TABLET PO SCH (08:31)
[2022-07-20] MEDS: FAMOTIDINE 20MG TABLET PO SCH (08:31)
[2022-07-20] MEDS: QUETIAPINE FUMARATE 50MG TABLET PO SCH ×2 (08:31→21:17)
[2022-07-20] MEDS: FERROUS SULFATE 325MG TABLET PO SCH ×3 (08:32→17:21)
[2022-07-20 09:03] LABS: BG BASE EXCESS 5.5 mmol/L (-2.0-2.0); BG DEOXYHEMOGLOBIN 1.5 % (0.0-5.0); BG FRACTION INSPIRED OXYGEN 28; BG HCO3 ACT 31.6 mmol/L (22.0-26.0); BG METHEMOGLOBIN 0.2 % (0.0-1.5); BG OXYGEN SATURATION 98.5 % (92.0-98.5); BG OXYHEMOGLOBIN 98.3 % (94.0-97.0); BG PCO2 54.2 mmHg (35.0-45.0); BG PH 7.383 (7.350-7.450); BG PO2 141.3 mmHg (75.0-100.0); BG SAMPLE SITE LEFT RADIAL; BG TOTAL HEMOGLOBIN 9.9 g/dL (12.0-18.0); BG VENT MODE NASAL CANNULA
[2022-07-20] MEDS: MIDODRINE HCL 5MG TABLET PO SCH ×3 (10:09→16:52)
[2022-07-20 11:27] LABS: PHOSPHORUS 2.9 mg/dL (2.5-4.9); T4 FREE 0.82 ng/dL (0.76-1.46)
[2022-07-20] MEDS: ENOXAPARIN 40MG/0.4ML SYR SUBCUT SCH (13:02)
[2022-07-21] VITALS (24 sets, daily range): BP systolic 50–164; BP diastolic 15–138
[2022-07-21] MEDS: GUAIFENESIN 200MG/10ML SUGAR FREE UDC PO SCH ×4 (00:36→18:00)
[2022-07-21] MEDS: MIDODRINE HCL 5MG TABLET PO SCH ×4 (00:36→22:27)
[2022-07-21 05:40] LABS: BASOPHILS % 0.4 % (0.0-2.0); EOSINOPHILS % 3.3 % (0.0-5.0); HEMATOCRIT. 31.7 % (36.0-48.0); HEMOGLOBIN. 10.1 g/dL (12.0-16.0); MEAN CORPUSCULAR HEMOGLOBIN 28.3 pg (28.0-32.0); MEAN CORPUSCULAR VOLUME 88.6 fL (81.0-99.0); MEAN PLATELET VOLUME 7.1 fl (7.4-10.4); NEUTROPHILS % 64.3 % (40.0-76.0); PLATELET 419 x1000/uL (130-400); RED BLOOD CELL COUNT 3.58 mill/uL (4.2-5.4); RED CELL DISTRIBUTION WIDTH 15.7 % (11.6-14.6)
[2022-07-21 05:51] LABS: CHLORIDE 109 mEq/L (98-107)
[2022-07-21] MEDS: GABAPENTIN 300MG CAPSULE PO SCH ×3 (06:46→22:27)
[2022-07-21 07:35] LABS: BG BASE EXCESS 1.5 mmol/L (-2.0-2.0); BG CARBOXYHEMOGLOBIN 0.1 % (0.5-1.5); BG DEOXYHEMOGLOBIN 1.9 % (0.0-5.0); BG HCO3 ACT 27.2 mmol/L (22.0-26.0); BG METHEMOGLOBIN 0.3 % (0.0-1.5); BG OXYGEN SATURATION 98.1 % (92.0-98.5); BG OXYHEMOGLOBIN 97.7 % (94.0-97.0); BG PCO2 47.7 mmHg (35.0-45.0); BG PH 7.374 (7.350-7.450); BG PO2 117.7 mmHg (75.0-100.0); BG SAMPLE SITE RIGHT RADIAL; BG TOTAL HEMOGLOBIN 10.9 g/dL (12.0-18.0); BG VENT MODE NASAL CANNULA
[2022-07-21] MEDS: QUETIAPINE FUMARATE 50MG TABLET PO SCH ×2 (08:47→22:27)
[2022-07-21] MEDS: FERROUS SULFATE 325MG TABLET PO SCH ×3 (08:47→18:10)
[2022-07-21] MEDS: FAMOTIDINE 20MG TABLET PO SCH (08:47)
[2022-07-21] MEDS: LEVOTHYROXINE SODIUM 50MCG TABLET PO SCH (08:47)
[2022-07-21] MEDS: LEVETIRACETAM 500MG TABLET PO SCH ×2 (08:47→22:27)
[2022-07-21] MEDS: LITHIUM CARBONATE 150 MG CAPSULE PO SCH ×2 (08:47→17:21)
[2022-07-21] MEDS ORDERED: QUET50TA PO (11:40)
[2022-07-21] MEDS ORDERED: MIDO5TAB4 PO (11:40)
[2022-07-21] MEDS ORDERED: GABA-532 PO (11:40)
[2022-07-21] MEDS ORDERED: KEPP500 PO (11:40)
[2022-07-21] MEDS ORDERED: LEVO50TA8 PO (11:40)
[2022-07-21] MEDS ORDERED: LITH150C PO (11:42)
[2022-07-21] MEDS: ENOXAPARIN 40MG/0.4ML SYR SUBCUT SCH (17:20)
== END 2022-07-21 23:20 | DRG 720 ==
LOC: ER 10:33 → SUPCPDRO 12:18 → MICUSO 13:21 → EDBEDREQSVC 13:31 → EDBEDREQ 13:31 → EDBEDREQSVC 23:11 → 5EST 07-10 10:18 → CVICU 07-12 16:50 → 5EST 07-16 12:33 → 7EST 07-18 13:11 → CVICU 07-20 03:36 → 7WST 07-21 11:19
PROVIDERS: ADMIT Internal Medicine; ATTEND Internal Medicine
PROC: 5A1945Z Respiratory Ventilation, 24-96 Consecutive Hours (ICD-10-PCS; principal; 2022-07-12)
PROC: 0BH17EZ Insertion of Endotracheal Airway into Trachea, Via Natural or Artificial Opening (ICD-10-PCS; 2022-07-12)
PROC: 4A00X4Z Measurement of Central Nervous Electrical Activity, External Approach (ICD-10-PCS; 2022-07-13)
PROC: 0DB78ZX Excision of Stomach, Pylorus, Via Natural or Artificial Opening Endoscopic, Diagnostic (ICD-10-PCS; 2022-07-19)
DX: A41.9 Sepsis, unspecified organism (principal); N17.0 Acute kidney failure with tubular necrosis; J96.01 Acute respiratory failure with hypoxia; J96.02 Acute respiratory failure with hypercapnia; G93.41 Metabolic encephalopathy; E87.0 Hyperosmolality and hypernatremia; J18.9 Pneumonia, unspecified organism; E44.0 Moderate protein-calorie malnutrition; I50.20 Unspecified systolic (congestive) heart failure; E78.5 Hyperlipidemia, unspecified; E03.9 Hypothyroidism, unspecified; G40.909 Epilepsy, unspecified, not intractable, without status epilepticus; J44.1 Chronic obstructive pulmonary disease with (acute) exacerbation; N39.0 Urinary tract infection, site not specified; D64.9 Anemia, unspecified; I11.0 Hypertensive heart disease with heart failure; F03.93 Unspecified dementia, unspecified severity, with mood disturbance; D75.839 Thrombocytosis, unspecified; F20.9 Schizophrenia, unspecified; F31.9 Bipolar disorder, unspecified; S90.511A Abrasion, right ankle, initial encounter; S90.512A Abrasion, left ankle, initial encounter; D75.838 Other thrombocytosis; K29.50 Unspecified chronic gastritis without bleeding; K31.7 Polyp of stomach and duodenum; Y95 Nosocomial condition; K21.9 Gastro-esophageal reflux disease without esophagitis; R13.12 Dysphagia, oropharyngeal phase; Z20.822 Contact with and (suspected) exposure to COVID-19; X58.XXXA Exposure to other specified factors, initial encounter; F41.9 Anxiety disorder, unspecified; Y92.89 Other specified places as the place of occurrence of the external cause; Z88.2 Allergy status to sulfonamides; Z88.6 Allergy status to analgesic agent; Z79.899 Other long term (current) drug therapy; Z90.49 Acquired absence of other specified parts of digestive tract; Z78.1 Physical restraint status; Z86.73 Personal history of transient ischemic attack (TIA), and cerebral infarction without residual deficits; Z88.5 Allergy status to narcotic agent; Z88.1 Allergy status to other antibiotic agents; Z91.013 Allergy to seafood; Y93.89 Activity, other specified; Y99.8 Other external cause status
CPT/HCPCS: 31500; 36415; 36600; 71045; 76705; 80048; 80053; 80061; 80178; 80202; 80305; 81003; 82375; 82550; 82553; 82607; 82746; 82805; 82962; 83036; 83540; 83550; 83605; 83735; 83880; 84100; 84145; 84439; 84443; 84478; 84484; 85025; 85027; 85379; 86850; 86900; 87070; 87077; 87186; 87426; 88305; 92610; 93005; 93306; 93970; 94002; 94003; 94640; 95816; 99291; A6261; C9113; C9803; J0456; J1650; J1953; J2060; J2543; J2704; J2920; J2930; J3010; J3370; J3480; J3490; J7030; J7050; J7060; J7131; A4315